=== PATIENT | female | born 1960 | race Caucasian/White ===

== ENCOUNTER 2019-08-12 04:49 | Inpatient (IN) | payer OTHER ==
--- NOTE | 2019-08-12 05:08 | PDOC ---
Attending Attestation - Resident Resident Name: Chad Savage - ED Attending Attestation I have performed the following: I have examined & evaluated the patient, The case was reviewed & discussed with the resident, I agree w/resident's findings & plan - HPI HPI: 08/12/19 06:39 Pt comes with APE; severe HTN and SOB. Pt comes with EMS on a cpap. Pt is a dialysis patient who is due for dialysis on Wednesday. She is originally from [place]; but she is visiting her daughter and she arranged for dialysis to be done at [place]. - Physicial Exam PE: 08/12/19 06:44 Agree with resident exam - Medical Decision Making 08/12/19 06:44 Right side of ACW,, pt has adual chamber pacer; pt has fluffy effusion/ infiltrates in right lung cooley greater than left lung field. 08/12/19 06:57 Pt started on a nitro drip; she was on 10mcg/min. Now upped to 20mcg/min, as BP is still 250/119 08/12/19 20:04 Signed out to the day ER docs
[2019-08-12 05:24] LABS: VENOUS PC02 39.1 mmHg (38-52); VENOUS PO2 < 49 mmHg (28-48)
--- NOTE | 2019-08-12 05:28 | PDOC ---
History of Present Illness - General Chief Complaint: Shortness of Breath Stated Complaint: DIFF BREATHING Time Seen by Provider: 08/12/19 04:57 Past History - Past Medical History Allergies/Adverse Reactions: Allergies Allergy/AdvReac Type Severity Reaction Status Date / Time No Known Allergies Allergy Verified 08/12/19 04:55 COPD: No HTN: Yes - Psycho Social/Smoking Cessation Hx Smoking History: Unknown if ever smoked Have you smoked in the past 12 months: No Information on smoking cessation initiated: No Hx Alcohol Use: No Drug/Substance Use Hx: No *Physical Exam - Vital Signs Last Vital Signs Temp Pulse Resp BP Pulse Ox 97.6 F 83 20 251/117 H 100 08/12/19 04:53 08/12/19 04:53 08/12/19 04:53 08/12/19 04:53 08/12/19 04:55 ED Treatment Course - ADDITIONAL ORDERS Additional order review: Laboratory Results 08/12/19 05:17 VBG pH 7.40 POC VBG pCO2 39.1 POC VBG pO2 < 49 H VBG HCO3 23.7 VBG O2 Sat (Kristal) 72.2 VBG Base Excess -0.5 - RADIOLOGY Radiology Studies Ordered: Category Date Time Status CHEST X-RAY PORTABLE* [RAD] Stat Radiology 08/12/19 05:18 Ordered
[2019-08-12 05:32] LABS: BASO % 0.6 % (0-2.0); EOS % 3.1 % (0-4.5); HEMOGLOBIN 11.4 GM/dL (10.7-15.3); LYMPH % 16.7 % (8-40); MCH 32.5 pg (25.7-33.7); MCHC 34.5 g/dl (32.0-36.0); MEAN CELL VOLUME 94.1 fl (80-96); MEAN PLT VOLUME 8.5 fl (7.5-11.1); MONO % 7.3 % (3.8-10.2); NEUT % 72.3 % (42.8-82.8); PLATELET COUNT 141 K/MM3 (134-434); RBC 3.51 M/mm3 (3.60-5.2); RDW 16.1 % (11.6-15.6); WHITE BLOOD COUNT 6.7 K/mm3 (4.0-10.0)
[2019-08-12] MEDS ORDERED: NITROGLYCERIN 25MG/D5W 250ML 25 MG/250 ML ML IVPB ONE (05:34)
[2019-08-12] MEDS: NITROGLYCERIN 25MG/D5W 250ML 25 MG/250 ML ML IVPB SCH ×2 (05:44→08:20)
[2019-08-12 05:46] LABS: INR 1.07 (0.83-1.09); PROTHROMBIN TIME (PATIENT) 12.6 SEC (9.7-13.0)
[2019-08-12 06:13] LABS: BILIRUBIN,TOTAL 0.4 mg/dL (0.2-1); BLOOD UREA NITROGEN 74.8 mg/dL (7-18); CALCIUM 8.7 mg/dL (8.5-10.1); POTASSIUM 4.7 mmol/L (3.5-5.1); TOT PROT 7.3 g/dl (6.4-8.2)
[2019-08-12 06:25] LABS: CREATININE 7.4 mg/dL (0.55-1.3)
--- NOTE | 2019-08-12 06:29 | PDOC ---
History of Present Illness - General Chief Complaint: Shortness of Breath Stated Complaint: DIFF BREATHING Time Seen by Provider: 08/12/19 04:57 History Source: Patient Exam Limitations: No Limitations - History of Present Illness Initial Comments: 08/12/19 06:22 58 yo female omh HTN, HFpEF, ESRD (HD T//) Pulmonary TB (S/P RIPE 08/01-03/01 ) paroxysmal afib (s/p ablation) PPM, CAD with multiple stents, on 2L NC at home as needed presents to the ED with severe sudden onset difficulty breathing. Pt statesshe woke up around 4 am with severe SOB similar to past CHF exacerbations and called EMS. Pt is from [place] and is in [place] visiting her daughter. Pt has holiday Dialysis scheduled in a [place] dialysis center . P denies being on home diuretics for an unknown reason however, when admitted, she is given lasix. Pt denies recent travel, recent illness, sick contacts, CP, abdominal pain, changes in bowel or bladder habits Past History - Past Medical History Allergies/Adverse Reactions: Allergies Allergy/AdvReac Type Severity Reaction Status Date / Time hydralazine Allergy Mild Uncoded 08/12/19 05:33 Home Medications: Ambulatory Orders Atorvastatin Ca [Lipitor] 20 mg PO HS 08/12/19 Carvedilol [Coreg] 25 mg PO BID 08/12/19 Clopidogrel Bisulfate [Plavix] 75 mg PO DAILY 08/12/19 Diltiazem [Cardizem -] 360 mg PO DAILY 08/12/19 Famotidine 20 mg PO DAILY 08/12/19 Losartan Potassium 100 mg PO DAILY 08/12/19 Minoxidil [Loniten -] 10 mg PO DAILY 08/12/19 Nifedipine [Nifedipine ER] 60 mg PO DAILY 08/12/19 Sevelamer HCl [Renagel] 800 mg PO TID 08/12/19 COPD: No HTN: Yes - Psycho Social/Smoking Cessation Hx Smoking History: Unknown if ever smoked Have you smoked in the past 12 months: No Information on smoking cessation initiated: No Hx Alcohol Use: No Drug/Substance Use Hx: No Review of Systems - Review of Systems Constitutional: Yes: See HPI HEENTM: Yes: See HPI Respiratory: Yes: See HPI Cardiac (ROS): Yes: See HPI ABD/GI: Yes: See HPI : Yes: See HPI Musculoskeletal: Yes: See HPI Integumentary: Yes: See HPI Neurological: Yes: See HPI *Physical Exam - Vital Signs Last Vital Signs Temp Pulse Resp BP Pulse Ox 97.6 F 82 19 210/111 H 100 08/12/19 04:53 08/12/19 05:45 08/12/19 05:45 08/12/19 05:58 08/12/19 05:45 - Physical Exam General Appearance: Yes: Nourished, Appropriately Dressed, Apparent Distress HEENT: positive: EOMI Neck: positive: Supple. negative: Carotid bruit Respiratory/Chest: positive: Accessory Muscle Use, Rapid RR, Rales (diffuse) Cardiovascular: positive: Regular Rhythm, Regular Rate, S1, S2, Edema. negative : Murmur Vascular Pulses: Dorsalis-Pedis (R): 4+, Doralis-Pedis (L): 4+ Gastrointestinal/Abdominal: positive: Flat, Soft. negative: Pulsatile Mass, Protuberent, Distended, Guarding, Rebound, Tenderness Musculoskeletal: negative: CVA Tenderness Extremity: positive: Normal Capillary Refill, Normal Inspection, Normal Range of Motion. negative: Tender Integumentary: positive: Normal Color, Dry, Warm Neurologic: positive: Fully Oriented, Alert, Normal Mood/Affect, Normal Response ED Treatment Course - LABORATORY CBC & Chemistry Diagram: 08/12/19 05:20 08/12/19 05:20 - ADDITIONAL ORDERS Additional order review: Laboratory Results 08/12/19 08/12/19 08/12/19 05:20 05:20 05:17 PT with INR 12.60 INR 1.07 VBG pH 7.40 POC VBG pCO2 39.1 POC VBG pO2 < 49 H VBG HCO3 23.7 VBG O2 Sat (Kristal) 72.2 VBG Base Excess -0.5 Sodium 136 Potassium 4.7 Chloride 101 Carbon Dioxide 26 Anion Gap 9 BUN 74.8 H Est GFR (CKD-EPI)AfAm 6.44 Est GFR (CKD-EPI)NonAf 5.56 Random Glucose 91 Calcium 8.7 Total Bilirubin 0.4 AST 26 ALT 32 Alkaline Phosphatase 112 Creatine Kinase 75 Troponin I 0.04 Total Protein 7.3 Albumin 4.0 08/12/19 05:20 RBC 3.51 L MCV 94.1 MCHC 34.5 RDW 16.1 H MPV 8.5 Neutrophils % 72.3 Lymphocytes % 16.7 Monocytes % 7.3 Eosinophils % 3.1 Basophils % 0.6 - RADIOLOGY Radiology Studies Ordered: Category Date Time Status CHEST X-RAY PORTABLE* [RAD] Stat Radiology 08/12/19 05:18 Ordered Medical Decision Making - Medical Decision Making 08/12/19 06:50 58 yo female omh HTN, HFpEF, ESRD (HD T//) Pulmonary TB (S/P RIPE 08/01-03/01 ) paroxysmal afib (s/p ablation) PPM, CAD with multiple stents, on 2L NC at home as needed presents to the ED with severe sudden onset difficulty breathing. Pt statesshe woke up around 4 am with severe SOB similar to past CHF exacerbations and called EMS. Pt is from [place] and is in [place] visiting her daughter. Pt has holiday Dialysis scheduled in a [place] dialysis center . P denies being on home diuretics for an unknown reason however, when admitted, she is given lasix. Pt denies recent travel, recent illness, sick contacts, CP, abdominal pain, changes in bowel or bladder habits vitals show elevated BP 250s on arrival, SOB with diffuse rales. Bedside sono shows diffuse B lines Placed on BIPAP and Nitro drip BP 210 systolic on 10 mcg nitro drip Labs other than Cr and BUN WNL Consulted ICU team for hypertensive emergency on drip, discussed with Dr. Marr. Will assess after rapid response Micro blogged for admission. Pending admission. S/O to day team for admission Discharge - Discharge Information Problems reviewed: Yes Clinical Impression/Diagnosis: Hypertensive emergency, CHF exacerbation Condition: Stable - Admission No - Follow up/Referral - Patient Discharge Instructions - Post Discharge Activity
--- NOTE | 2019-08-12 08:21 | CONSULT ---
Consultation: REQUESTING PROVIDER: Dr Rene CONSULT REQUEST: ICU management HISTORY OF PRESENT ILLNESS: 58 y/o female with PMH of HTN, ESRD (/) CHF CAD s/p stents , PPM presents to the ED with complaints of worsening shortness of breath over the past few days - patient usually uses 2 liters of home o2 and felt over the past few days she was needing it more frequently and was having worsening shortness of breath when she was laying down; when she got to the ED her systolic bp was in the 250; s and she was started on a nitro gtt; notable labs: Cr 7.4 BNP [id number] patient; CXR showing congestive changes with possible superimposed infiltrates =- patient given 1 dose of IV lasix and placed on BIPAP with relief; patient currently receiving HD REVIEW OF SYSTEMS: CONSTITUTIONAL: Absent: fever, chills, diaphoresis, generalized weakness, malaise, loss of appetite, weight change HEENT: Absent: rhinorrhea, nasal congestion, throat pain, throat swelling, difficulty swallowing, mouth swelling, ear pain, eye pain, visual changes CARDIOVASCULAR: Absent: chest pain, syncope, palpitations, irregular heart rate, lightheadedness , peripheral edema RESPIRATORY: Present: shortness of breath; dyspnea with exertion Absent: cough, orthopnea, wheezing, stridor, hemoptysis GASTROINTESTINAL: Absent: abdominal pain, abdominal distension, nausea, vomiting, diarrhea, constipation, melena, hematochezia GENITOURINARY: Absent: dysuria, frequency, urgency, hesitancy, hematuria, flank pain, genital pain MUSCULOSKELETAL: Absent: myalgia, arthralgia, joint swelling, back pain, neck pain SKIN: Absent: rash, itching, pallor HEMATOLOGIC/IMMUNOLOGIC: Absent: easy bleeding, easy bruising, lymphadenopathy, frequent infections ENDOCRINE: Absent: unexplained weight gain, unexplained weight loss, heat intolerance, cold intolerance NEUROLOGIC: Absent: headache, focal weakness or paresthesias, dizziness, unsteady gait, seizure, mental status changes, bladder or bowel incontinence PSYCHIATRIC: Absent: anxiety, depression, suicidal or homicidal ideation, hallucinations. PHYSICAL EXAMINATION Vital Signs - 24 hr 08/12/19 08/12/19 08/12/19 04:53 04:55 05:45 Temperature 97.6 F Pulse Rate 83 Pulse Rate [ 82 Right Radial] Respiratory 20 19 Rate Blood Pressure 251/117 H Blood Pressure 237/113 H [Right Arm] Blood Pressure [Right Calf] O2 Sat by Pulse 100 100 100 Oximetry (%) 08/12/19 08/12/19 08/12/19 05:58 06:44 07:15 Temperature 97.1 F L Pulse Rate Pulse Rate [ 82 82 Right Radial] Respiratory 19 18 Rate Blood Pressure Blood Pressure 210/111 H 206/96 H 215/112 H [Right Arm] Blood Pressure [Right Calf] O2 Sat by Pulse 100 99 Oximetry (%) 08/12/19 08/12/19 08/12/19 07:20 07:25 07:45 Temperature Pulse Rate Pulse Rate [ 80 84 83 Right Radial] Respiratory 10 15 15 Rate Blood Pressure Blood Pressure 221/108 H [Right Arm] Blood Pressure 205/88 H 207/85 H [Right Calf] O2 Sat by Pulse 99 100 Oximetry (%) GENERAL: Awake, alert, and fully oriented, on BIPAP. EYES: PEERLA: EOMI; no scleral icterus NECK: no JVD; no lymphadenopathy LUNGS:rales appreciated B/L HEART: Regular rate and rhythm, normal S1 and S2 without murmur, rub or gallop. ABDOMEN: Soft, NT/ND +BS in all 4 quadrants MUSCULOSKELETAL: Normal range of motion at all joints. No bony deformities or tenderness. No CVA tenderness. EXTREMITIES:warm; well-perfused no clubbing/cyanosis or edema NEUROLOGICAL: Cranial nerves II-XII intact. Normal speech. Normal gait. PSYCHIATRIC: Cooperative. Good eye contact. Appropriate mood and affect. SKIN: Warm, dry, normal turgor, no rashes or lesions noted. Laboratory Results - last 24 hr 08/12/19 08/12/19 08/12/19 04:40 05:17 05:20 WBC RBC Hgb Hct MCV MCH MCHC RDW Plt Count MPV Absolute Neuts (auto) Neutrophils % Lymphocytes % Monocytes % Eosinophils % Basophils % Nucleated RBC % PT with INR INR VBG pH 7.40 POC VBG pCO2 39.1 POC VBG pO2 < 49 H VBG HCO3 23.7 VBG O2 Sat (Kristal) 72.2 VBG Base Excess -0.5 Sodium 136 Potassium 4.7 Chloride 101 Carbon Dioxide 26 Anion Gap 9 BUN 74.8 H Creatinine 7.4 H* Est GFR (CKD-EPI)AfAm 6.44 Est GFR (CKD-EPI)NonAf 5.56 Random Glucose 91 Calcium 8.7 Total Bilirubin 0.4 AST 26 ALT 32 Alkaline Phosphatase 112 Creatine Kinase 75 Troponin I 0.04 B-Natriuretic Peptide 48408.9 H Total Protein 7.3 Albumin 4.0 08/12/19 08/12/19 05:20 05:20 WBC 6.7 RBC 3.51 L Hgb 11.4 Hct 33.0 MCV 94.1 MCH 32.5 MCHC 34.5 RDW 16.1 H Plt Count 141 MPV 8.5 Absolute Neuts (auto) 4.9 Neutrophils % 72.3 Lymphocytes % 16.7 Monocytes % 7.3 Eosinophils % 3.1 Basophils % 0.6 Nucleated RBC % 0 PT with INR 12.60 INR 1.07 VBG pH POC VBG pCO2 POC VBG pO2 VBG HCO3 VBG O2 Sat (Kristal) VBG Base Excess Sodium Potassium Chloride Carbon Dioxide Anion Gap BUN Creatinine Est GFR (CKD-EPI)AfAm Est GFR (CKD-EPI)NonAf Random Glucose Calcium Total Bilirubin AST ALT Alkaline Phosphatase Creatine Kinase Troponin I B-Natriuretic Peptide Total Protein Albumin Active Medications Generic Name Dose Route Start Last Admin Trade Name Freq PRN Reason Stop Dose Admin Chlorhexidine Gluconate 1 applic 08/12/19 22:00 Hibiclens For Decolonization - TP HS KAUSHIK Heparin Sodium (Porcine) 5,000 unit 08/12/19 14:00 Heparin - SQ TID KAUSHIK Nitroglycerin/Dextrose 25 mg in 250 mls @ 6 mls/hr 08/12/19 05:30 08/12/19 08 :20 Nitroglycerin 25mg/D5w 250ml IVPB 23 mcg/min TITR KAUSHIK 13.8 mls/hr Administration 10 MCG/MIN Mupirocin 1 applic 08/12/19 10:00 Bactroban Ointment (For Decolonization) - NS 08/17/19 09:59 BID [facility] ASSESSMENT/PLAN: 58 y/o female with PMH of HTN, ESRD (t//) CHF CAD s/p stents , PPM presents to the ED with complaints of worsening shortness of breath over the past few days found to be in CHF exacerbation with hypertensive emergency #Neuro stable; no issues -given high BP will monitor for any stroke-like symptoms #Cardio HTN, CHF, CAD -currently with hypertensive emergency on nitro gtt -will switch to cardene gtt and restart home meds -not currently on diuretics; may give lasix if breathing doesn't improve -echo ordered -cardio consulted #GI stable; no issues -renal diet; sodium restriction #Pulm uses 2liters of o2 at home -currently saturating well on NC -repeat CXR in AM -BIPAP if need -monitor o2 saturations #Renal history of ESRD t/th/s -currently receiving HD - f/u post HD labs -sodium restrictions -monitor volume status -avoid nephrotoxic drugs -nephro consulted f/e/n not on fluids monitor electrolytes sodium/renal diet dvt ppx: heparin sq Dispo: We will continue to follow the patient. Thank you for this consultative opportunity. Problem List - Problems (1) CHF exacerbation Code(s): I50.9 - HEART FAILURE, UNSPECIFIED Qualifiers: Heart failure type: unspecified Qualified Code(s): I50.9 - Heart failure, unspecified (2) Hypertensive emergency Code(s): I16.1 - HYPERTENSIVE EMERGENCY Visit type - Emergency Visit Emergency Visit: Yes ED Registration Date: 08/12/19 Care time: The patient presented to the Emergency Department on the above date and was hospitalized for further evaluation of their emergent condition. - New Patient This patient is new to me today: Yes Date on this admission: 08/12/19 - Critical Care Critical Care patient: Yes Total Critical Care Time (in minutes): 35 Critical Care Statement: The care of this patient involved high complexity decision making to prevent further life threatening deterioration of the patient 's condition and/or to evaluate & treat vital organ system(s) failure or risk of failure. ATTENDING PHYSICIAN STATEMENT I saw and evaluated the patient. I reviewed the resident's note and discussed the case with the resident. I agree with the resident's findings and plan as documented. SUBJECTIVE: OBJECTIVE: ASSESSMENT AND PLAN:
--- NOTE | 2019-08-12 08:47 | PDOC ---
*Physical Exam - Vital Signs Last Vital Signs Temp Pulse Resp BP Pulse Ox 97.1 F L 81 18 185/74 H 100 08/12/19 07:15 08/12/19 08:22 08/12/19 08:22 08/12/19 08:22 08/12/19 08:25 ED Treatment Course - LABORATORY CBC & Chemistry Diagram: 08/12/19 05:20 08/12/19 05:20 - ADDITIONAL ORDERS Additional order review: Laboratory Results 08/12/19 08/12/19 08/12/19 05:20 05:20 05:17 PT with INR 12.60 INR 1.07 VBG pH 7.40 POC VBG pCO2 39.1 POC VBG pO2 < 49 H VBG HCO3 23.7 VBG O2 Sat (Kristal) 72.2 VBG Base Excess -0.5 Sodium 136 Potassium 4.7 Chloride 101 Carbon Dioxide 26 Anion Gap 9 BUN 74.8 H Creatinine 7.4 H* Est GFR (CKD-EPI)AfAm 6.44 Est GFR (CKD-EPI)NonAf 5.56 Random Glucose 91 Calcium 8.7 Total Bilirubin 0.4 AST 26 ALT 32 Alkaline Phosphatase 112 Creatine Kinase 75 Troponin I 0.04 B-Natriuretic Peptide Total Protein 7.3 Albumin 4.0 08/12/19 04:40 PT with INR INR VBG pH POC VBG pCO2 POC VBG pO2 VBG HCO3 VBG O2 Sat (Kristal) VBG Base Excess Sodium Potassium Chloride Carbon Dioxide Anion Gap BUN Creatinine Est GFR (CKD-EPI)AfAm Est GFR (CKD-EPI)NonAf Random Glucose Calcium Total Bilirubin AST ALT Alkaline Phosphatase Creatine Kinase Troponin I B-Natriuretic Peptide 30393.9 H Total Protein Albumin 08/12/19 05:20 RBC 3.51 L MCV 94.1 MCHC 34.5 RDW 16.1 H MPV 8.5 Neutrophils % 72.3 Lymphocytes % 16.7 Monocytes % 7.3 Eosinophils % 3.1 Basophils % 0.6 ED Progress Note - Progress Note Progress Note: Hand off provided to Dr. De Oliveira & Dr. Beebe for admission to ICU for management of nitro drip. 08/12/19 08:45 Discharge - Discharge Information Problems reviewed: Yes Clinical Impression/Diagnosis: Hypertensive emergency CHF exacerbation Qualifiers: Heart failure type: unspecified Qualified Code(s): I50.9 - Heart failure, unspecified Condition: Stable - Follow up/Referral - Patient Discharge Instructions - Post Discharge Activity
--- NOTE | 2019-08-12 10:23 | PN ---
Teaching Attending Note Name of Resident: Miladys De Oliveira ATTENDING PHYSICIAN STATEMENT I saw and evaluated the patient. I reviewed the resident's note and discussed the case with the resident. I agree with the resident's findings and plan as documented. SUBJECTIVE: Patient seen and examined in the ER. Awake and alert on NIPPV Support and IV NTG. Daughter at the bedside. Currently BP is much improved. Denies CP and SOB and better. Intake & Output 08/09/19 08/10/19 08/11/19 08/12/19 23:59 23:59 23:59 23:59 Weight 131 lb 8 oz Last Vital Signs Temp Pulse Resp BP Pulse Ox 97.6 F 80 24 H 219/99 H 100 08/12/19 10:04 08/12/19 10:04 08/12/19 10:04 08/12/19 10:03 08/12/19 10:07 Active Medications Chlorhexidine Gluconate (Hibiclens For Decolonization -) 1 applic TP HS KAUSHIK Heparin Sodium (Porcine) (Heparin -) 5,000 unit SQ TID KAUSHIK Nitroglycerin/Dextrose (Nitroglycerin 25mg/D5w 250ml) 25 mg in 250 mls @ 6 mls/ hr IVPB TITR KAUSHIK Last Titration: 08/12/19 10:10 Dose: 40 mcg/min, 24 mls/hr Mupirocin (Bactroban Ointment (For Decolonization) -) 1 applic NS BID KAUSHIK Stop: 08/17/19 09:59 GENERAL: Awake, alert, on NIPPV HEAD: Normal with no signs of trauma. EYES: Pupils equal, round and reactive to light, extraocular movements intact, sclera anicteric, conjunctiva clear. No lid lag. EARS, NOSE, THROAT: Ears normal, nares patent, oropharynx clear without exudates. Moist mucous membranes. NECK: Normal range of motion, supple without lymphadenopathy, JVD, or masses. LUNGS: NIPPV support, Bilateral rales and rhonchi HEART: Regular rate and rhythm, normal S1 and S2 without murmur, rub or gallop. ABDOMEN: Soft, nontender, not distended, normoactive bowel sounds, no guarding, no rebound, no masses. No hepatomegaly or splenomegaly. MUSCULOSKELETAL: Normal range of motion at all joints. No bony deformities or tenderness. No CVA tenderness. UPPER EXTREMITIES: 2+ pulses, warm, well-perfused. No cyanosis. No clubbing. Cap refill <2 seconds. No peripheral edema. LOWER EXTREMITIES: 2+ pulses, warm, well-perfused. No calf tenderness. No peripheral edema. NEUROLOGICAL: Non-focal SKIN: Warm, dry, normal turgor, no rashes or lesions noted. Laboratory Results - last 24 hr 08/12/19 08/12/19 08/12/19 04:40 05:17 05:20 WBC RBC Hgb Hct MCV MCH MCHC RDW Plt Count MPV Absolute Neuts (auto) Neutrophils % Lymphocytes % Monocytes % Eosinophils % Basophils % Nucleated RBC % PT with INR INR VBG pH 7.40 POC VBG pCO2 39.1 POC VBG pO2 < 49 H VBG HCO3 23.7 VBG O2 Sat (Kristal) 72.2 VBG Base Excess -0.5 Sodium 136 Potassium 4.7 Chloride 101 Carbon Dioxide 26 Anion Gap 9 BUN 74.8 H Creatinine 7.4 H* Est GFR (CKD-EPI)AfAm 6.44 Est GFR (CKD-EPI)NonAf 5.56 Random Glucose 91 Calcium 8.7 Total Bilirubin 0.4 AST 26 ALT 32 Alkaline Phosphatase 112 Creatine Kinase 75 Troponin I 0.04 B-Natriuretic Peptide 35656.9 H Total Protein 7.3 Albumin 4.0 08/12/19 08/12/19 05:20 05:20 WBC 6.7 RBC 3.51 L Hgb 11.4 Hct 33.0 MCV 94.1 MCH 32.5 MCHC 34.5 RDW 16.1 H Plt Count 141 MPV 8.5 Absolute Neuts (auto) 4.9 Neutrophils % 72.3 Lymphocytes % 16.7 Monocytes % 7.3 Eosinophils % 3.1 Basophils % 0.6 Nucleated RBC % 0 PT with INR 12.60 INR 1.07 VBG pH POC VBG pCO2 POC VBG pO2 VBG HCO3 VBG O2 Sat (Kristal) VBG Base Excess Sodium Potassium Chloride Carbon Dioxide Anion Gap BUN Creatinine Est GFR (CKD-EPI)AfAm Est GFR (CKD-EPI)NonAf Random Glucose Calcium Total Bilirubin AST ALT Alkaline Phosphatase Creatine Kinase Troponin I B-Natriuretic Peptide Total Protein Albumin Active Medications Generic Name Dose Route Start Last Admin Trade Name Freq PRN Reason Stop Dose Admin Chlorhexidine Gluconate 1 applic 08/12/19 22:00 Hibiclens For Decolonization - TP HS KAUSHIK Heparin Sodium (Porcine) 5,000 unit 08/12/19 14:00 Heparin - SQ TID KAUSHIK Nitroglycerin/Dextrose 25 mg in 250 mls @ 6 mls/hr 08/12/19 05:30 08/12/19 08 :20 Nitroglycerin 25mg/D5w 250ml IVPB 23 mcg/min TITR KAUSHIK 13.8 mls/hr Administration 10 MCG/MIN Mupirocin 1 applic 08/12/19 10:00 Bactroban Ointment (For Decolonization) - NS 08/17/19 09:59 BID KAUSHIK ASSESSMENT/PLAN: Acute Respiratory Failure due to CHF due to Hypertensive Emergency HTN CHF HFpEF ESRD on HD (//) History of Pulmonary TB (S/P RIPE 08/01-03/01) Paroxysmal AFib (s/p ablation) PPM CAD with multiple stents Use of home O2 @ 2L NC IV NTG Lasix NIPPV support ECHO AC Aspiration precautions Daily weights Strict I & O Requires ICU monitoring for tenuous overall status Dr Santizo Critical care time spent in reviewing chart, evaluating patient and formulating plan - 36 minutes.
[2019-08-12] MEDS ORDERED: SODIUM CHLORIDE 250 ML IV PRN (10:52)
--- NOTE | 2019-08-12 11:21 | CONSULT ---
Consult - text type - Consultation Consultation Note: Renal consult for ESRD with hypertensive urgency/fluid overload Coverage for Dr. Caputo This is a 58 year old woman with history of ESRD on HD (TTS), hypertension, CHF , Afib, PPM who presented from home with shortness of breath and found to have acute HF with hypertensive emergency. Seen and examined in the ICU. Awake and alert. On Nitro gtt. Denies any chest pain, fever, chills. SOB has been over 2 weeks. Last dialysis was . Reports compliance with antihypertensive medications. PMhx: as above Allergies: Hydralazine Family Hx: NC social Hx: No T/A/D ROS: as per HPI, all other pertinent ros negative Home Medications Medication Instructions Recorded Atorvastatin Ca [Lipitor] 20 mg PO HS 08/12/19 Carvedilol [Coreg] 25 mg PO BID 08/12/19 Clopidogrel Bisulfate [Plavix] 75 mg PO DAILY 08/12/19 Diltiazem [Cardizem -] 360 mg PO DAILY 08/12/19 Famotidine 20 mg PO DAILY 08/12/19 Isosorbide Mononitrate [Isosorbide 120 mg PO DAILY 08/12/19 Mononitrate ER] Losartan Potassium 100 mg PO DAILY 08/12/19 Minoxidil [Loniten -] 10 mg PO HS 08/12/19 Nifedipine [Nifedipine ER] 60 mg PO DAILY 08/12/19 Nitroglycerin 0.4 mg SL ASDIR 08/12/19 Sevelamer HCl [Renagel] 800 mg PO TID 08/12/19 Vital Signs Temperature 97.6 F 08/12/19 10:04 Pulse Rate 80 08/12/19 10:04 Respiratory Rate 24 H 08/12/19 10:04 Blood Pressure 219/99 H 08/12/19 10:03 O2 Sat by Pulse Oximetry (%) 100 08/12/19 10:07 Intake & Output 08/09/19 08/10/19 08/11/19 08/12/19 23:59 23:59 23:59 23:59 Weight 59.647 kg NAD awake and alert neck supple irregular, + murmur Dec BS, no rales or wheeze soft NT/ND no LE edema Left arm AVF CBC, BMP 08/12/19 05:20 08/12/19 05:20 Current Medications Chlorhexidine Gluconate (Hibiclens For Decolonization -) 1 applic TP HS KAUSHIK Heparin Sodium (Porcine) (Heparin -) 5,000 unit SQ TID KAUSHIK Nitroglycerin/Dextrose (Nitroglycerin 25mg/D5w 250ml) 25 mg in 250 mls @ 6 mls/ hr IVPB TITR KAUSHIK Last Titration: 08/12/19 10:10 Dose: 40 mcg/min, 24 mls/hr Sodium Chloride (Normal Saline -) 250 mls @ 3,000 mls/hr IV PRN PRN PRN Reason: Hypotension during Dialysis Stop: 08/13/19 10:52 Mupirocin (Bactroban Ointment (For Decolonization) -) 1 applic NS BID KAUSHIK Stop: 08/17/19 09:59 58 year old woman with history of ESRD on HD (TTS), hypertension, CHF, Afib on A /C, PPM who presented from home with shortness of breath and found to have acute HF with hypertensive emergency. 1. Hypertensive emergency 2. Acute HF 3. ESRD on HD 4. Afib Will arrange for emergent Hd with aggressive UF continue nitro gtt as per ICU resume oral antihypertensives after dialysis Sodium restriction will consider additional UF on Wednesday if needed Thank you Alec Law DO
--- NOTE | 2019-08-12 13:23 | EKG ---
Test Reason : Blood Pressure : / mmHG Vent. Rate : 081 BPM Atrial Rate : 081 BPM P-R Int : 170 ms QRS Dur : 084 ms QT Int : 412 ms P-R-T Axes : 051 005 107 degrees QTc Int : 478 ms NORMAL SINUS RHYTHM PROLONGED QT ABNORMAL ECG WHEN COMPARED WITH ECG OF 17-FEB-2005 16:44, NON-SPECIFIC CHANGE IN ST SEGMENT IN INFERIOR LEADS NON-SPECIFIC CHANGE IN ST SEGMENT IN LATERAL LEADS T WAVE INVERSION NOW EVIDENT IN LATERAL LEADS Confirmed by WILMER BLACKWOOD MD ([id number]) on 08/12/2019 1:23:22 PM Referred By: Confirmed By:WILMER BLACKWOOD MD
--- NOTE | 2019-08-12 15:23 | CON.CARD ---
Consult Consult Specialty:: Cardiology Referred by:: Hospitalist Medicine Reason for Consultation:: Hypertensive urgency, diastolic CHF - History of Present Illness Chief Complaint: Dyspnea, elevated BP History of Present Illness: This is a 58 year old woman with history of ESRD on HD via LUE AVF (TTS), hypertension, pHTN, HFpEF, Pulmonary TB (S/P [place] 08/01-03/01), paroxysmal afib (s /p ablation) PPM, CAD with multiple stents, on 2L NC at home as needed presented from home with shortness of breath, headache, chest tightness and found to have acute on chronic diastolic HF with hypertensive emergency. Started Nitro gtt and underwent 4 L ultrafiltration with relief of symptoms. Denies any fever, chills. SOB has been over 2 weeks. Last dialysis was . Reports compliance with antihypertensive medications and diet. - History Source History Provided By: Patient Limitations to Obtaining History: No Limitations - Past Medical History Cardio/Vascular: Yes: AFIB, CHF, HTN Renal/: Yes: Hemodialysis ...: No - Alcohol/Substance Use Hx Alcohol Use: No - Smoking History Smoking history: Former smoker Have you smoked in the past 12 months: No If you are a former smoker, when did you quit?: YEARS AGO Home Medications - Allergies Allergies/Adverse Reactions: Allergies Allergy/AdvReac Type Severity Reaction Status Date / Time hydralazine Allergy Severe Verified 08/12/19 11:28 hydralazine Allergy Severe Itching Uncoded 08/12/19 10:19 - Home Medications Home Medications: Ambulatory Orders Atorvastatin Ca [Lipitor] 20 mg PO HS 08/12/19 Carvedilol [Coreg] 25 mg PO BID 08/12/19 Clopidogrel Bisulfate [Plavix] 75 mg PO DAILY 08/12/19 Diltiazem [Cardizem -] 360 mg PO DAILY 08/12/19 Famotidine 20 mg PO DAILY 08/12/19 Isosorbide Mononitrate [Isosorbide Mononitrate ER] 120 mg PO DAILY 08/12/19 Losartan Potassium 100 mg PO DAILY 08/12/19 Minoxidil [Loniten -] 10 mg PO HS 08/12/19 Nifedipine [Nifedipine ER] 60 mg PO DAILY 08/12/19 Nitroglycerin 0.4 mg SL ASDIR 08/12/19 Sevelamer HCl [Renagel] 800 mg PO TID 08/12/19 Review of Systems - Review of Systems Cardiovascular: reports: Chest Pain, Shortness of Breath Neurological: reports: Headache Vital Signs: Vital Signs Temperature 97.6 F 08/12/19 10:04 Pulse Rate 94 H 08/12/19 15:00 Respiratory Rate 16 08/12/19 15:00 Blood Pressure 212/113 H 08/12/19 15:00 O2 Sat by Pulse Oximetry (%) 100 08/12/19 13:00 Constitutional: Yes: No Distress, Calm, Thin Neck: Yes: Supple Respiratory: Yes: Regular, Diminished, On Nasal O2 Gastrointestinal: Yes: Normal Bowel Sounds, Soft Cardiovascular: Yes: Regular Rate and Rhythm JVD: No Carotid Bruit: No Heart Sounds: Yes: S1, S2 Murmur: Yes: Systolic Murmur, Grade 1 Edema: No - Other Data Labs, Other Data: CBC, BMP 08/12/19 05:20 08/12/19 05:20 INR, PTT INR 1.07 (0.83-1.09) 08/12/19 05:20 Troponin, BNP 08/12/19 08/12/19 08/12/19 04:40 05:20 11:10 Troponin I 0.04 0.04 B-Natriuretic Peptide 26009.9 H Troponin, BNP 08/12/19 08/12/19 08/12/19 04:40 05:20 11:10 Troponin I 0.04 0.04 B-Natriuretic Peptide 29806.9 H NSR @ [address]-T changes Ejection Fraction %: LVEF > or = 40 % Imaging - Results Chest X-ray: Report Reviewed (Congestion, pacemaker) Problem List - Problems (1) Hyperlipidemia Code(s): E78.5 - HYPERLIPIDEMIA, UNSPECIFIED Qualifiers: Hyperlipidemia type: pure hypercholesterolemia Qualified Code(s): E78.00 - Pure hypercholesterolemia, unspecified; E78.0 - Pure hypercholesterolemia (2) Coronary artery disease Code(s): I25.10 - ATHSCL HEART DISEASE OF [place] CORONARY ARTERY W/O ANG PCTRS Qualifiers: Coronary Disease-Associated Artery/Lesion type: [place] artery [place] vs. transplanted heart: [place] heart Associated angina: with stable angina Qualified Code(s): I25.118 - Atherosclerotic heart disease of [place] coronary artery with other forms of angina pectoris (3) Stented coronary artery Code(s): Z95.5 - PRESENCE OF CORONARY ANGIOPLASTY IMPLANT AND GRAFT (4) End stage renal disease on dialysis Code(s): N18.6 - END STAGE RENAL DISEASE; Z99.2 - DEPENDENCE ON RENAL DIALYSIS (5) CHF exacerbation Code(s): I50.9 - HEART FAILURE, UNSPECIFIED Qualifiers: Heart failure type: diastolic Qualified Code(s): I50.33 - Acute on chronic diastolic (congestive) heart failure (6) Hypertensive emergency Code(s): I16.1 - HYPERTENSIVE EMERGENCY Assessment/Plan 1. Acute on chronic diastolic heart failure 2. HTN emergency 3. ESRD on HD via LUE AVF (//) 4. CAD s/p stents 5. PAF->SR 6. s/p PPM 7. Hyperlipidemia P:1. Volume removal via UF per renal 2. Wean NTG gtt, resume home regimen including Lipitor 20 qd, carvedilol 25 bid , Plavix 75 qd, Cardizem CD 360 qd, Imdur 120 qd, losartan 100 qd, minoxidil 10 qd, Procardia XL 60 qd step-pacheco fashion 3. F/u echo results 4. FIO2 as needed 5. Thank you for consultative opportunity
[2019-08-12] MEDS: LOSARTAN POTASSIUM 50 MG TABLET (FP) PO SCH (16:04)
[2019-08-12] MEDS: NIFEdipine E.R 60 MG TABLET PO SCH (16:06)
[2019-08-12] MEDS: HEPARIN NA (PORCINE) 5,000 UNITS/ML 1ML VIAL SQ SCH ×3 (16:07→21:41)
[2019-08-12] MEDS ORDERED: PT OWN MED DRAWER 7, Y5N ONE ×2 (16:14→19:21)
[2019-08-12] MEDS: ACETAMINOPHEN 325 MG TABLET (FP) PO PRN ×2 (16:14→22:50)
[2019-08-12 16:32] LABS: BLOOD UREA NITROGEN 9.7 mg/dL (7-18); CREATININE 1.7 mg/dL (0.55-1.3)
[2019-08-12] MEDS ORDERED: CARVEDILOL 25 MG TABLET (FP) PO ONE (17:27)
[2019-08-12] MEDS ORDERED: CLOPIDOGREL BISULFATE 75 MG TABLET (FP) PO ONE (17:34)
[2019-08-12] MEDS: ISOSORBIDE MONONITRATE 60 MG TAB.SR.24H (FP) PO SCH (18:20)
--- NOTE | 2019-08-12 18:21 | PN ---
Teaching Attending Note Name of Resident: Orin Beebe ATTENDING PHYSICIAN STATEMENT I saw and evaluated the patient. I reviewed the resident's note and discussed the case with the resident. I agree with the resident's findings and plan as documented. SUBJECTIVE: Feeling better, less SOB. No headache/visual disturbance/limb numbness/weakness. OBJECTIVE: Afebrile, Hemodynamically Stable. Last Vital Signs Temp Pulse Resp BP Pulse Ox 97.6 F 92 H 18 156/90 97 08/12/19 10:04 08/12/19 17:30 08/12/19 17:30 08/12/19 17:30 08/12/19 16:21 HEENT - Atraumatic, Normocephalic. Heart - S1, S2, RRR Lungs - basal crackles Abdomen - Soft, non-tender. Bowel sounds normal. Extremities - no edema, no calf tenderness. Laboratory Results - last 24 hr 08/12/19 08/12/19 08/12/19 04:40 05:17 05:20 WBC RBC Hgb Hct MCV MCH MCHC RDW Plt Count MPV Absolute Neuts (auto) Neutrophils % Lymphocytes % Monocytes % Eosinophils % Basophils % Nucleated RBC % PT with INR INR VBG pH 7.40 POC VBG pCO2 39.1 POC VBG pO2 < 49 H VBG HCO3 23.7 VBG O2 Sat (Kristal) 72.2 VBG Base Excess -0.5 Sodium 136 Potassium 4.7 Chloride 101 Carbon Dioxide 26 Anion Gap 9 BUN 74.8 H Creatinine 7.4 H* Est GFR (CKD-EPI)AfAm 6.44 Est GFR (CKD-EPI)NonAf 5.56 Random Glucose 91 Calcium 8.7 Total Bilirubin 0.4 AST 26 ALT 32 Alkaline Phosphatase 112 Creatine Kinase 75 Troponin I 0.04 B-Natriuretic Peptide 85356.9 H Total Protein 7.3 Albumin 4.0 08/12/19 08/12/19 08/12/19 05:20 05:20 11:10 WBC 6.7 RBC 3.51 L Hgb 11.4 Hct 33.0 MCV 94.1 MCH 32.5 MCHC 34.5 RDW 16.1 H Plt Count 141 MPV 8.5 Absolute Neuts (auto) 4.9 Neutrophils % 72.3 Lymphocytes % 16.7 Monocytes % 7.3 Eosinophils % 3.1 Basophils % 0.6 Nucleated RBC % 0 PT with INR 12.60 INR 1.07 VBG pH POC VBG pCO2 POC VBG pO2 VBG HCO3 VBG O2 Sat (Kristal) VBG Base Excess Sodium Potassium Chloride Carbon Dioxide Anion Gap BUN Creatinine Est GFR (CKD-EPI)AfAm Est GFR (CKD-EPI)NonAf Random Glucose Calcium Total Bilirubin AST ALT Alkaline Phosphatase Creatine Kinase Troponin I 0.04 B-Natriuretic Peptide Total Protein Albumin 08/12/19 15:15 WBC RBC Hgb Hct MCV MCH MCHC RDW Plt Count MPV Absolute Neuts (auto) Neutrophils % Lymphocytes % Monocytes % Eosinophils % Basophils % Nucleated RBC % PT with INR INR VBG pH POC VBG pCO2 POC VBG pO2 VBG HCO3 VBG O2 Sat (Kristal) VBG Base Excess Sodium Potassium Chloride Carbon Dioxide Anion Gap BUN 9.7 Creatinine 1.7 H Est GFR (CKD-EPI)AfAm 38.13 Est GFR (CKD-EPI)NonAf 32.90 Random Glucose Calcium Total Bilirubin AST ALT Alkaline Phosphatase Creatine Kinase Troponin I B-Natriuretic Peptide Total Protein Albumin Current Medications Generic Name Dose Route Start Last Admin Trade Name Freq PRN Reason Stop Dose Admin Acetaminophen 650 mg 08/12/19 16:00 08/12/19 16:14 Tylenol - PO 650 mg Q6H PRN Administration Fever / Pain 6-10 for headache Atorvastatin Calcium 20 mg 08/12/19 22:00 Lipitor - PO HS [facility] Carvedilol 25 mg 08/12/19 22:00 Coreg - PO BID [facility] Chlorhexidine Gluconate 1 applic 08/12/19 22:00 Hibiclens For Decolonization - TP HS [facility] Clopidogrel Bisulfate 75 mg 08/13/19 10:00 Plavix - PO DAILY [facility] Diltiazem HCl 360 mg 08/12/19 15:45 08/12/19 16:03 Cardizem Cd - PO 360 mg DAILY KAUSHIK Administration Heparin Sodium (Porcine) 5,000 unit 08/12/19 14:00 08/12/19 16:07 Heparin - SQ 5,000 unit TID KAUSHIK Administration Nitroglycerin/Dextrose 25 mg in 250 mls @ 6 mls/hr 08/12/19 05:30 08/12/19 17 :35 Nitroglycerin 25mg/D5w 250ml IVPB 15 mcg/min TITR KAUSHIK 9 mls/hr Titration 10 MCG/MIN Sodium Chloride 250 mls @ 3,000 mls/hr 08/12/19 10:52 Normal Saline - IV 08/13/19 10:52 PRN PRN Hypotension during Dialysis Isosorbide Mononitrate 120 mg 08/12/19 15:45 Imdur - PO DAILY [facility] Losartan Potassium 100 mg 08/12/19 15:45 08/12/19 16:04 Cozaar - PO 100 mg DAILY [facility] Administration Minoxidil 10 mg 08/12/19 22:00 Loniten - PO HS [facility] Mupirocin 1 applic 08/12/19 22:00 Bactroban Ointment (For Decolonization) - NS 08/17/19 21:59 BID [facility] Nifedipine 60 mg 08/12/19 15:45 08/12/19 16:06 Procardia Xl - PO 60 mg DAILY [facility] Administration Home Medications Medication Instructions Recorded Atorvastatin Ca [Lipitor] 20 mg PO HS 08/12/19 Carvedilol [Coreg] 25 mg PO BID 08/12/19 Clopidogrel Bisulfate [Plavix] 75 mg PO DAILY 08/12/19 Diltiazem [Cardizem -] 360 mg PO DAILY 08/12/19 Famotidine 20 mg PO DAILY 08/12/19 Isosorbide Mononitrate [Isosorbide 120 mg PO DAILY 08/12/19 Mononitrate ER] Losartan Potassium 100 mg PO DAILY 08/12/19 Minoxidil [Loniten -] 10 mg PO HS 08/12/19 Nifedipine [Nifedipine ER] 60 mg PO DAILY 08/12/19 Nitroglycerin 0.4 mg SL ASDIR 08/12/19 Sevelamer HCl [Renagel] 800 mg PO TID 08/12/19 ASSESSMENT AND PLAN: 58 year old female with history of HTN, ESRD (T/T/S), Paroxysmal AFib (s/p ablation), Chronic respiratory Failure secondary to Chronic Diastolic CHF (on 2L O2), CAD s/p stents, s/p PPM, History of Pulmonary TB (S/P [place] 08/01-03/01), presents to the ED with complaints of worsening shortness of breath and found to have uncontrolled HTN. 1. Acute on Chronic Respiratory Failure secondary to Acute on Chronic Diastolic CHF/Fluid Overload secondary to ESRD CXR - congestive changes BiPAP PRN ESRD (T/T/S) s/p Lasix in ED Nephrology consult for HD Echo requested. 2. Hypertensive Urgency Placed on Nitro drip - down-titration of drip after reintroduction of home anti- hypertensive meds and HD today. Resume Carvedilol, Cardizem CD, Imdur, Losartan, Minoxidil, Procardia. 3. CAD s/p PCI/Stents - Continue Plavix, Carvedilol, Imdur, Losartan, Statin. 4. PAF, currently in SR. continue Cardizem. Not on AC. 5. HLD - Continue Lipitor. DVT Px - Heparin SQ
--- NOTE | 2019-08-12 18:35 | HP ---
CHIEF COMPLAINT: shortness of breath PCP: Dr. Bassett Bonnie [facility] HISTORY OF PRESENT ILLNESS: 58F w/ pmhx of HTN, HFpEF, ESRD (TThS), hx of pulm TB (S/P [place] 08/01-03/01), pAFib (s/p ablation) , CAD (s/p stents), PPM, CHF (on 2L O2) presents to the ED with shortness of breath. States she has been having progressive worsening shortness of breath when laying down to the point where it woke her up from sleep overnight. Pt says she follows her dialysis schedule as recommended and is also compliant with all of her medications. Last , she reports having 1L of fluid taken off during dialysis, but noticed that when she weighed herself after HD, she was 57 kg (dry weight per patient is 54 kg). Upon arrival in the ED, BP was found to be elevated with systolic in the 250s. Denies chest pain, goode/d, n/v, abd pain, urinary/bowel symptoms. ER course was notable for: (1) BP 251/117, HR ~90s, Cr 1.7, BNP ~28k (2) Placed on BiPAP, CXR showed congestive changes and possible superimposed bibasilar infiltrates (3) Nitro gtt started in ED Recent Travel: Denies PAST MEDICAL HISTORY: As per HPI PAST SURGICAL HISTORY: s/p cardiac ablation PPM multiple cardiac stents Social History: Smoking: Denies Alcohol: Denies Drugs: Denies Allergies hydralazine Allergy (Severe, Verified 08/12/19 11:28) bradycardia qmd itching hydralazine Allergy (Severe, Uncoded 08/12/19 10:19) Itching ALSO BECAME VERY BRADYCARDIC HOME MEDICATIONS: Home Medications Medication Instructions Recorded Atorvastatin Ca [Lipitor] 20 mg PO HS 08/12/19 Carvedilol [Coreg] 25 mg PO BID 08/12/19 Clopidogrel Bisulfate [Plavix] 75 mg PO DAILY 08/12/19 Diltiazem [Cardizem -] 360 mg PO DAILY 08/12/19 Famotidine 20 mg PO DAILY 08/12/19 Isosorbide Mononitrate [Isosorbide 120 mg PO DAILY 08/12/19 Mononitrate ER] Losartan Potassium 100 mg PO DAILY 08/12/19 Minoxidil [Loniten -] 10 mg PO HS 08/12/19 Nifedipine [Nifedipine ER] 60 mg PO DAILY 08/12/19 Nitroglycerin 0.4 mg SL ASDIR 08/12/19 Sevelamer HCl [Renagel] 800 mg PO TID 08/12/19 REVIEW OF SYSTEMS CONSTITUTIONAL: Absent: fever, chills, diaphoresis, generalized weakness, malaise, loss of appetite, weight change HEENT: Absent: rhinorrhea, nasal congestion, throat pain, throat swelling, difficulty swallowing, mouth swelling, ear pain, eye pain, visual changes CARDIOVASCULAR: Absent: chest pain, syncope, palpitations, irregular heart rate, lightheadedness , peripheral edema RESPIRATORY: shortness of breath Absent: cough, dyspnea with exertion, orthopnea, wheezing, stridor, hemoptysis GASTROINTESTINAL: Absent: abdominal pain, abdominal distension, nausea, vomiting, diarrhea, constipation, melena, hematochezia GENITOURINARY: Absent: dysuria, frequency, urgency, hesitancy, hematuria, flank pain, genital pain MUSCULOSKELETAL: Absent: myalgia, arthralgia, joint swelling, back pain, neck pain SKIN: Absent: rash, itching, pallor HEMATOLOGIC/IMMUNOLOGIC: Absent: easy bleeding, easy bruising, lymphadenopathy, frequent infections ENDOCRINE: Absent: unexplained weight gain, unexplained weight loss, heat intolerance, cold intolerance PHYSICAL EXAMINATION Vital Signs Temperature 98.4 F 08/12/19 18:00 Pulse Rate 93 H 08/12/19 18:00 Respiratory Rate 16 08/12/19 18:00 Blood Pressure 170/83 08/12/19 18:00 O2 Sat by Pulse Oximetry (%) 97 08/12/19 16:21 BP 08/12/19 08/12/19 08/12/19 11:10 12:00 13:30 Blood Pressure 214/108 H 212/89 H 186/96 H 08/12/19 08/12/19 08/12/19 14:30 15:00 15:15 Blood Pressure 201/99 H 212/113 H 210/113 H 08/12/19 08/12/19 08/12/19 16:00 17:30 18:00 Blood Pressure 198/96 H 156/90 170/83 GENERAL: AAOx3. Resting comfortably in bed on bi-level. No acute distress. HEENT: AT/NC. EOMI. MMM. NECK: Normal range of motion, supple without lymphadenopathy, JVD, or masses. LUNGS: Bibasilar crackles noted. No wheezes noted. Symmetric chest rise. HEART: RRR. Normal S1, S2. No murmurs noted. ABDOMEN: Soft, NT/ND. Normoactive bowel sounds in all 4Qs. No rebound tenderness or guarding. MUSCULOSKELETAL: Normal range of motion at all joints. No bony deformities or tenderness. No CVA tenderness. EXTREMITIES: No peripheral edema noted. Moves all extremities. NEUROLOGICAL: Cranial nerves II-XII intact. Normal speech. PSYCHIATRIC: Cooperative. Good eye contact. Appropriate mood and affect. SKIN: Warm, dry, normal turgor, no rashes or lesions noted, normal capillary refill. CBCD WBC 6.7 K/mm3 (4.0-10.0) 08/12/19 05:20 RBC 3.51 M/mm3 (3.60-5.2) L 08/12/19 05:20 Hgb 11.4 GM/dL (10.7-15.3) 08/12/19 05:20 Hct 33.0 % (32.4-45.2) 08/12/19 05:20 MCV 94.1 fl (80-96) 08/12/19 05:20 MCHC 34.5 g/dl (32.0-36.0) 08/12/19 05:20 RDW 16.1 % (11.6-15.6) H 08/12/19 05:20 Plt Count 141 K/MM3 (134-434) 08/12/19 05:20 MPV 8.5 fl (7.5-11.1) 08/12/19 05:20 CMP Sodium 136 mmol/L (136-145) 08/12/19 05:20 Potassium 4.7 mmol/L (3.5-5.1) 08/12/19 05:20 Chloride 101 mmol/L (98-107) 08/12/19 05:20 Carbon Dioxide 26 mmol/L (21-32) 08/12/19 05:20 Anion Gap 9 MMOL/L (8-16) 08/12/19 05:20 BUN 9.7 mg/dL (7-18) 08/12/19 15:15 Creatinine 1.7 mg/dL (0.55-1.3) H 08/12/19 15:15 Calcium 8.7 mg/dL (8.5-10.1) 08/12/19 05:20 Total Bilirubin 0.4 mg/dL (0.2-1) 08/12/19 05:20 AST 26 U/L (15-37) 08/12/19 05:20 ALT 32 U/L (13-61) 08/12/19 05:20 Alkaline Phosphatase 112 U/L (45-117) 08/12/19 05:20 Total Protein 7.3 g/dl (6.4-8.2) 08/12/19 05:20 Albumin 4.0 g/dl (3.4-5.0) 08/12/19 05:20 ASSESSMENT/PLAN: 58F w/ pmhx of HTN, HFpEF, ESRD (TThS), hx of pulm TB (S/P [place] 08/01-03/01), pAFib (s/p ablation) , CAD (s/p stents), PPM, CHF (on 2L O2) presents to the ED with shortness of breath found to have uncontrolled hypertension. #Acute on Chronic Respiratory Failure; 2/2 fluid overload in setting of ESRD -Clinically stable with no acute respiratory issues -CXR showed congestive changes -Renal consulted; will cont HD schedule (TThS) -Echo ordered #Hypertensive Urgency; Stable. -Previously on nitro gtt, now off. Home meds re-instated. Cont home meds: Cardizem 360, Losartan 100, Procardia 60, Coreg 25 BID #ESRD; Cont HD schedule TThS. Per renal, consider UF on Wednesday if needed. #Afib; Rate-controlled. Cont home med: Cardizem 360, Coreg 25 BID, Plavix 75 #CAD; Stable. Cont home med: Coreg 25 BID, Atorvastatin 20, Plavix 75, Losartan 100, Imdur 120 #HLD; Cont home med: Atorvastatin 20 #Prophylaxis DVT: SQH #FEN -No IVf -recheck lytes in AM -Renal Diet Dispo -admit to ICU; once off nitro drip and HD stable, can transfer to tele Visit type - Emergency Visit Emergency Visit: Yes ED Registration Date: 08/12/19 Care time: The patient presented to the Emergency Department on the above date and was hospitalized for further evaluation of their emergent condition. - New Patient This patient is new to me today: Yes Date on this admission: 08/12/19 - Critical Care Critical Care patient: Yes Total Critical Care Time (in minutes): 36 Critical Care Statement: The care of this patient involved high complexity decision making to prevent further life threatening deterioration of the patient 's condition and/or to evaluate & treat vital organ system(s) failure or risk of failure. ATTENDING PHYSICIAN STATEMENT I saw and evaluated the patient. I reviewed the resident's note and discussed the case with the resident. I agree with the resident's findings and plan as documented. SUBJECTIVE: OBJECTIVE: ASSESSMENT AND PLAN:
[2019-08-12] MEDS: MUPIROCIN 2% TOPICAL OINTMENT FOR DECOLONIZATION NS SCH (21:35)
[2019-08-12] MEDS: ATORVASTATIN CA 20 MG TABLET (FP) PO SCH (21:35)
[2019-08-12] MEDS: CHLORHEXIDINE GLUCONATE 4% CLEANSER FOR DECOLONIZATION TP SCH (21:36)
[2019-08-12] MEDS ORDERED: ATORVASTATIN CA 20 MG TABLET (FP) PO SCH (22:00)
[2019-08-12] MEDS ORDERED: CARVEDILOL 6.25 MG TABLET (FP) PO SCH (22:00)
[2019-08-12] MEDS ORDERED: MINOXIDIL 10 MG TABLET PO SCH (22:00)
[2019-08-12] MEDS ORDERED: CARVEDILOL 25 MG TABLET (FP) PO SCH (22:00)
[2019-08-13] MEDS: NITROGLYCERIN 25MG/D5W 250ML 25 MG/250 ML ML IVPB SCH (06:22)
[2019-08-13] MEDS: HEPARIN NA (PORCINE) 5,000 UNITS/ML 1ML VIAL SQ SCH ×3 (06:22→22:19)
[2019-08-13 06:54] LABS: BASO % 0.6 % (0-2.0); HEMATOCRIT 30.2 % (32.4-45.2); HEMOGLOBIN 10.4 GM/dL (10.7-15.3); LYMPH % 19.3 % (8-40); MCH 32.1 pg (25.7-33.7); MCHC 34.5 g/dl (32.0-36.0); MEAN PLT VOLUME 8.6 fl (7.5-11.1); NEUT % 66.1 % (42.8-82.8); PLATELET COUNT 133 K/MM3 (134-434); RBC 3.25 M/mm3 (3.60-5.2); RDW 15.9 % (11.6-15.6); WHITE BLOOD COUNT 5.2 K/mm3 (4.0-10.0)
[2019-08-13 07:54] LABS: ALBUMIN 3.4 g/dl (3.4-5.0); BILIRUBIN,TOTAL 0.8 mg/dL (0.2-1); BLOOD UREA NITROGEN 40.9 mg/dL (7-18); CREATININE 5.3 mg/dL (0.55-1.3); MAGNESIUM 1.7 mg/dL (1.8-2.4); PHOSPHOROUS 5.9 mg/dL (2.5-4.9); POTASSIUM 4.4 mmol/L (3.5-5.1); TOT PROT 6.7 g/dl (6.4-8.2)
[2019-08-13] MEDS ORDERED: MAGNESIUM SULF 50% (8.12 MEQ/2 ML-1 GM VIAL) IVPB ONE (08:16)
[2019-08-13] MEDS ORDERED: PT OWN MED DRAWER 7, Y5N ONE ×2 (08:34→21:24)
[2019-08-13] MEDS: CLOPIDOGREL BISULFATE 75 MG TABLET (FP) PO SCH (09:19)
[2019-08-13] MEDS: ISOSORBIDE MONONITRATE 60 MG TAB.SR.24H (FP) PO SCH (09:20)
[2019-08-13] MEDS: LOSARTAN POTASSIUM 50 MG TABLET (FP) PO SCH (09:20)
[2019-08-13] MEDS: CARVEDILOL 25 MG TABLET (FP) PO SCH ×2 (09:21→22:30)
[2019-08-13] MEDS: MUPIROCIN 2% TOPICAL OINTMENT FOR DECOLONIZATION NS SCH ×2 (09:36→22:18)
[2019-08-13] MEDS ORDERED: CLOPIDOGREL BISULFATE 75 MG TABLET (FP) PO SCH (10:00)
--- NOTE | 2019-08-13 10:30 | PN ---
Teaching Attending Note Name of Resident: Elis Koenig ATTENDING PHYSICIAN STATEMENT I saw and evaluated the patient. I reviewed the resident's note and discussed the case with the resident. I agree with the resident's findings and plan as documented. SUBJECTIVE: Patient seen and examined in the ICU. Awake and alert. Off IV NTG. Off NIPPV support. Denies CP and SOB is better. Intake & Output 08/10/19 08/11/19 08/12/19 08/13/19 23:59 23:59 23:59 23:59 Intake Total 564 Output Total 30 Balance 534 Weight 131 lb 8 oz 126 lb 8.725 oz Last Vital Signs Temp Pulse Resp BP Pulse Ox 98.2 F 64 18 130/63 97 08/13/19 06:00 08/13/19 09:26 08/13/19 09:26 08/13/19 09:20 08/13/19 05:10 Home Medication List Medication Instructions Recorded Confirmed Type Atorvastatin Ca [Lipitor] 20 mg PO HS 08/12/19 08/12/19 History Carvedilol [Coreg] 25 mg PO BID 08/12/19 08/12/19 History Clopidogrel Bisulfate [Plavix] 75 mg PO DAILY 08/12/19 08/12/19 History Diltiazem [Cardizem -] 360 mg PO DAILY 08/12/19 08/12/19 History Famotidine 20 mg PO DAILY 08/12/19 08/12/19 History Isosorbide Mononitrate [Isosorbide 120 mg PO DAILY 08/12/19 08/12/19 History Mononitrate ER] Losartan Potassium 100 mg PO DAILY 08/12/19 08/12/19 History Minoxidil [Loniten -] 10 mg PO HS 08/12/19 08/12/19 History Nifedipine [Nifedipine ER] 60 mg PO DAILY 08/12/19 08/12/19 History Nitroglycerin 0.4 mg SL ASDIR 08/12/19 08/12/19 History Sevelamer HCl [Renagel] 800 mg PO TID 08/12/19 08/12/19 History Active Medications Generic Name Dose Route Start Last Admin Trade Name Freq PRN Reason Stop Dose Admin Acetaminophen 650 mg 08/12/19 16:00 08/12/19 22:50 Tylenol - PO 650 mg Q6H PRN Administration Fever / Pain 6-10 for headache Atorvastatin Calcium 20 mg 08/12/19 22:00 08/12/19 21:35 Lipitor - PO 20 mg HS KAUSHIK Administration Carvedilol 25 mg 08/13/19 10:00 08/13/19 09:21 Coreg - PO 25 mg BID KAUSHIK Administration Chlorhexidine Gluconate 1 applic 08/12/19 22:00 08/12/19 21:36 Hibiclens For Decolonization - TP 1 applic HS KAUSHIK Administration Clopidogrel Bisulfate 75 mg 08/13/19 10:00 08/13/19 09:19 Plavix - PO 75 mg DAILY KAUSHIK Administration Diltiazem HCl 360 mg 08/12/19 15:45 08/13/19 09:21 Cardizem Cd - PO 360 mg DAILY KAUSHIK Administration Heparin Sodium (Porcine) 5,000 unit 08/12/19 14:00 08/13/19 06:22 Heparin - SQ Not Given TID KAUSHIK Nitroglycerin/Dextrose 25 mg in 250 mls @ 6 mls/hr 08/12/19 05:30 08/13/19 06 :22 Nitroglycerin 25mg/D5w 250ml IVPB Not Given TITR KAUSHIK 10 MCG/MIN Sodium Chloride 250 mls @ 3,000 mls/hr 08/12/19 10:52 Normal Saline - IV 08/13/19 10:52 PRN PRN Hypotension during Dialysis Isosorbide Mononitrate 120 mg 08/12/19 15:45 08/13/19 09:20 Imdur - PO 120 mg DAILY KAUSHIK Administration Losartan Potassium 100 mg 08/12/19 15:45 08/13/19 09:20 Cozaar - PO 100 mg DAILY KAUSHIK Administration Minoxidil 10 mg 08/13/19 22:00 Loniten - PO HS [facility] Mupirocin 1 applic 08/12/19 22:00 08/13/19 09:36 Bactroban Ointment (For Decolonization) - NS 08/17/19 21:59 1 applic BID KAUSHIK Administration Nifedipine 60 mg 08/12/19 15:45 08/12/19 16:06 Procardia Xl - PO 60 mg DAILY KAUSHIK Administration GENERAL: Awake, alert, NAD HEAD: Normal with no signs of trauma. EYES: Pupils equal, round and reactive to light, extraocular movements intact, sclera anicteric, conjunctiva clear. No lid lag. EARS, NOSE, THROAT: Ears normal, nares patent, oropharynx clear without exudates. Moist mucous membranes. NECK: Normal range of motion, supple without lymphadenopathy, JVD, or masses. LUNGS: Improving rales and rhonchi HEART: Regular rate and rhythm, normal S1 and S2 without murmur, rub or gallop. ABDOMEN: Soft, nontender, not distended, normoactive bowel sounds, no guarding, no rebound, no masses. No hepatomegaly or splenomegaly. MUSCULOSKELETAL: Normal range of motion at all joints. No bony deformities or tenderness. No CVA tenderness. UPPER EXTREMITIES: 2+ pulses, warm, well-perfused. No cyanosis. No clubbing. Cap refill <2 seconds. No peripheral edema. LOWER EXTREMITIES: 2+ pulses, warm, well-perfused. No calf tenderness. No peripheral edema. NEUROLOGICAL: Non-focal SKIN: Warm, dry, normal turgor, no rashes or lesions noted. Laboratory Results - last 24 hr 08/12/19 08/12/19 08/12/19 11:10 14:44 15:15 WBC RBC Hgb Hct MCV MCH MCHC RDW Plt Count MPV Absolute Neuts (auto) Neutrophils % Lymphocytes % Monocytes % Eosinophils % Basophils % Nucleated RBC % Sodium Potassium Chloride Carbon Dioxide Anion Gap BUN 9.7 Creatinine 1.7 H Est GFR (CKD-EPI)AfAm 38.13 Est GFR (CKD-EPI)NonAf 32.90 Random Glucose Calcium Phosphorus Magnesium Total Bilirubin AST ALT Alkaline Phosphatase Troponin I 0.04 Total Protein Albumin Hep Bs Antigen Negative Hep C Ab Diagnostic <0.1 08/12/19 08/13/19 08/13/19 17:44 05:55 05:55 WBC 5.2 RBC 3.25 L Hgb 10.4 L Hct 30.2 L MCV 93.0 MCH 32.1 MCHC 34.5 RDW 15.9 H Plt Count 133 L MPV 8.6 Absolute Neuts (auto) 3.5 Neutrophils % 66.1 Lymphocytes % 19.3 Monocytes % 11.0 H Eosinophils % 3.0 Basophils % 0.6 Nucleated RBC % 0 Sodium 137 Potassium 4.4 Chloride 101 Carbon Dioxide 31 Anion Gap 4 L BUN 40.9 H Creatinine 5.3 H Est GFR (CKD-EPI)AfAm 9.64 Est GFR (CKD-EPI)NonAf 8.32 Random Glucose 86 Calcium 8.0 L Phosphorus 5.9 H Magnesium 1.7 L Total Bilirubin 0.8 AST 22 ALT 29 Alkaline Phosphatase 101 Troponin I 0.03 Total Protein 6.7 Albumin 3.4 Hep Bs Antigen Hep C Ab Diagnostic ASSESSMENT/PLAN: Acute Respiratory Failure due to CHF due to Hypertensive Emergency HTN CHF HFpEF ESRD on HD (/) History of Pulmonary TB (S/P [place] 08/01-03/01) Paroxysmal AFib (s/p ablation) PPM CAD with multiple stents Use of home O2 @ 2L NC HD per Renal Imdur NIPPV support as needed ECHO AC Aspiration precautions Daily weights Strict I & O Cardiac Telemetry monitoring Dr Santizo
--- NOTE | 2019-08-13 10:48 | PN ---
Physical Exam: SUBJECTIVE: Patient seen this morning with no complaints. She feels much better after her dialysis yesterday. OBJECTIVE: Vital Signs Period Temp Pulse Resp BP Sys/French Pulse Ox Last 24 Hr 98.1 F-98.4 F 64-95 12-26 111-229/48-113 94-100 GENERAL: The patient is awake, alert, and fully oriented, in no acute distress. HEAD: Normal with no signs of trauma. EYES: PERRL, extraocular movements intact, ENT: moist mucous membranes. NECK: Trachea midline, full range of motion, supple. LUNGS: Breath sounds equal, clear to auscultation bilaterally, no wheezes, no crackles, no accessory muscle use. HEART: Regular rate and rhythm, S1, S2 without murmur, rub or gallop. ABDOMEN: Soft, nontender, nondistended, normoactive bowel sounds, es. EXTREMITIES: 2+ pulses, warm, well-perfused, no edema. SKIN: Warm, dry, normal turgor, no rashes or lesions noted thrill felt over left fistula CBC, BMP 08/13/19 05:55 08/13/19 05:55 Active Medications Acetaminophen (Tylenol -) 650 mg PO Q6H PRN PRN Reason: Fever / Pain 6-10 for headache Last Admin: 08/12/19 22:50 Dose: 650 mg Atorvastatin Calcium (Lipitor -) 20 mg PO HS [facility] Last Admin: 08/12/19 21:35 Dose: 20 mg Carvedilol (Coreg -) 25 mg PO BID [facility] Last Admin: 08/13/19 09:21 Dose: 25 mg Chlorhexidine Gluconate (Hibiclens For Decolonization -) 1 applic TP HS [facility] Last Admin: 08/12/19 21:36 Dose: 1 applic Clopidogrel Bisulfate (Plavix -) 75 mg PO DAILY [facility] Last Admin: 08/13/19 09:19 Dose: 75 mg Diltiazem HCl (Cardizem Cd -) 360 mg PO DAILY [facility] Last Admin: 08/13/19 09:21 Dose: 360 mg Heparin Sodium (Porcine) (Heparin -) 5,000 unit SQ TID [facility] Last Admin: 08/13/19 06:22 Dose: Not Given Nitroglycerin/Dextrose (Nitroglycerin 25mg/D5w 250ml) 25 mg in 250 mls @ 6 mls/ hr IVPB TITR [facility] Last Admin: 08/13/19 06:22 Dose: Not Given Sodium Chloride (Normal Saline -) 250 mls @ 3,000 mls/hr IV PRN PRN PRN Reason: Hypotension during Dialysis Stop: 08/13/19 10:52 Isosorbide Mononitrate (Imdur -) 120 mg PO DAILY [facility] Last Admin: 08/13/19 09:20 Dose: 120 mg Losartan Potassium (Cozaar -) 100 mg PO DAILY [facility] Last Admin: 08/13/19 09:20 Dose: 100 mg Minoxidil (Loniten -) 10 mg PO HS [facility] Mupirocin (Bactroban Ointment (For Decolonization) -) 1 applic NS BID [facility] Stop: 08/17/19 21:59 Last Admin: 08/13/19 09:36 Dose: 1 applic Nifedipine (Procardia Xl -) 60 mg PO DAILY [facility] Last Admin: 08/12/19 16:06 Dose: 60 mg ASSESSMENT/PLAN: 58 y/o female with PMH of HTN, ESRD (t//) CHF CAD s/p stents , PPM presents to the ED with complaints of worsening shortness of breath over the past few days found to be in CHF exacerbation with hypertensive emergency #Neuro - stable; no issues #Cardio - HTN, CHF, CAD - hypertensive emergency resolved, continue home meds carvedilol 25 bid, diltiazem 360 daily, imdur 120 mg daily, losartan 100 mg daily, minoxidil hs, nifedipine 60 mg daily, monitor BP closely - echo ordered - cardio consulted - continue clopidogrel hx of stents and vascular disease #GI - stable; no issues - renal diet; sodium restriction - hepatitis negative #Pulm - uses 2liters of o2 at home -currently saturating well on NC at 2 L -repeat CXR in AM -BIPAP if need -monitor o2 saturations #Renal history of ESRD t// - due for dialysis on wednesday, cr improved with dialysis -sodium restrictions -monitor volume status -avoid nephrotoxic drugs -nephro consulted f/e/n not on fluids monitor electrolytes, repleted magnesium sodium/renal diet dvt ppx: heparin sq Dispo: stable to be transferred to tele Visit type - Emergency Visit Emergency Visit: No - New Patient This patient is new to me today: Yes Date on this admission: 08/13/19 - Critical Care Critical Care patient: Yes Total Critical Care Time (in minutes): 37 Critical Care Statement: The care of this patient involved high complexity decision making to prevent further life threatening deterioration of the patient 's condition and/or to evaluate & treat vital organ system(s) failure or risk of failure. ATTENDING PHYSICIAN STATEMENT I saw and evaluated the patient. I reviewed the resident's note and discussed the case with the resident. I agree with the resident's findings and plan as documented. SUBJECTIVE: OBJECTIVE: ASSESSMENT AND PLAN:
[2019-08-13] MEDS ORDERED: SODIUM CHLORIDE 250 ML IV PRN (10:50)
--- NOTE | 2019-08-13 10:50 | PN ---
Progress Note (short form) - Note Progress Note: Renal follow up for ESRD coverage for Dr. Caputo Seen and examined in the ICU awake and alert feels much better s/p dialysis yesterday with 4L UF no chest pain or sob still has some hypoxia off O2 Vital Signs Temperature 98.2 F 08/13/19 10:00 Pulse Rate 64 08/13/19 09:26 Respiratory Rate 18 08/13/19 09:26 Blood Pressure 126/66 08/13/19 10:00 O2 Sat by Pulse Oximetry (%) 98 08/13/19 10:00 Intake & Output 08/10/19 08/11/19 08/12/19 08/13/19 23:59 23:59 23:59 23:59 Intake Total 564 Output Total 30 Balance 534 Weight 59.647 kg 57.4 kg NAD on NC O2 awake and alert neck supple irregular, + murmur Dec BS, no rales or wheeze soft NT/ND no LE edema Left arm AVF CBC, BMP 08/13/19 05:55 08/13/19 05:55 Current Medications Acetaminophen (Tylenol -) 650 mg PO Q6H PRN PRN Reason: Fever / Pain 6-10 for headache Last Admin: 08/12/19 22:50 Dose: 650 mg Atorvastatin Calcium (Lipitor -) 20 mg PO HS [facility] Last Admin: 08/12/19 21:35 Dose: 20 mg Carvedilol (Coreg -) 25 mg PO BID [facility] Last Admin: 08/13/19 09:21 Dose: 25 mg Chlorhexidine Gluconate (Hibiclens For Decolonization -) 1 applic TP HS [facility] Last Admin: 08/12/19 21:36 Dose: 1 applic Clopidogrel Bisulfate (Plavix -) 75 mg PO DAILY [facility] Last Admin: 08/13/19 09:19 Dose: 75 mg Diltiazem HCl (Cardizem Cd -) 360 mg PO DAILY [facility] Last Admin: 08/13/19 09:21 Dose: 360 mg Heparin Sodium (Porcine) (Heparin -) 5,000 unit SQ TID [facility] Last Admin: 08/13/19 06:22 Dose: Not Given Sodium Chloride (Normal Saline -) 250 mls @ 3,000 mls/hr IV PRN PRN PRN Reason: Hypotension during Dialysis Stop: 08/13/19 10:52 Isosorbide Mononitrate (Imdur -) 120 mg PO DAILY [facility] Last Admin: 08/13/19 09:20 Dose: 120 mg Losartan Potassium (Cozaar -) 100 mg PO DAILY [facility] Last Admin: 08/13/19 09:20 Dose: 100 mg Minoxidil (Loniten -) 10 mg PO [facility] Mupirocin (Bactroban Ointment (For Decolonization) -) 1 applic NS BID [facility] Stop: 08/17/19 21:59 Last Admin: 08/13/19 09:36 Dose: 1 applic Nifedipine (Procardia Xl -) 60 mg PO DAILY [facility] Last Admin: 08/12/19 16:06 Dose: 60 mg 58 year old woman with history of ESRD on HD (TTS), hypertension, CHF, Afib on A /C, PPM who presented from home with shortness of breath and found to have acute HF with hypertensive emergency. 1. Hypertensive emergency 2. Acute HF 3. ESRD on HD 4. Afib Clinically improved s/p HD yesterday will arrange for isolated UF tomorrow and then regular dialysis on Wednesday continue oral antihypertensives after dialysis Sodium restriction Thank you Alec Law DO
[2019-08-13] MEDS: NIFEdipine E.R 60 MG TABLET PO SCH ×2 (10:51→13:51)
--- NOTE | 2019-08-13 10:53 | PN ---
Progress Note, Physician History of Present Illness: Shortness of breath, headache, chest tightness referable to acute on chronic diastolic HF with hypertensive emergency improving post Nitro gtt and 4 L ultrafiltration with relief of symptoms. Off NIPPV on NC. - Current Medication List Current Medications: Active Medications Acetaminophen (Tylenol -) 650 mg PO Q6H PRN PRN Reason: Fever / Pain 6-10 for headache Last Admin: 08/12/19 22:50 Dose: 650 mg Atorvastatin Calcium (Lipitor -) 20 mg PO HS [facility] Last Admin: 08/12/19 21:35 Dose: 20 mg Carvedilol (Coreg -) 25 mg PO BID [facility] Last Admin: 08/13/19 09:21 Dose: 25 mg Chlorhexidine Gluconate (Hibiclens For Decolonization -) 1 applic TP HS [facility] Last Admin: 08/12/19 21:36 Dose: 1 applic Clopidogrel Bisulfate (Plavix -) 75 mg PO DAILY [facility] Last Admin: 08/13/19 09:19 Dose: 75 mg Diltiazem HCl (Cardizem Cd -) 360 mg PO DAILY [facility] Last Admin: 08/13/19 09:21 Dose: 360 mg Heparin Sodium (Porcine) (Heparin -) 5,000 unit SQ TID [facility] Last Admin: 08/13/19 06:22 Dose: Not Given Sodium Chloride (Normal Saline -) 250 mls @ 3,000 mls/hr IV PRN PRN PRN Reason: Hypotension during Dialysis Stop: 08/13/19 10:52 Sodium Chloride (Normal Saline -) 250 mls @ 3,000 mls/hr IV PRN PRN PRN Reason: Hypotension during Dialysis Stop: 08/14/19 10:50 Isosorbide Mononitrate (Imdur -) 120 mg PO DAILY [facility] Last Admin: 08/13/19 09:20 Dose: 120 mg Losartan Potassium (Cozaar -) 100 mg PO DAILY [facility] Last Admin: 08/13/19 09:20 Dose: 100 mg Minoxidil (Loniten -) 10 mg PO [facility] Mupirocin (Bactroban Ointment (For Decolonization) -) 1 applic NS BID [facility] Stop: 08/17/19 21:59 Last Admin: 08/13/19 09:36 Dose: 1 applic Nifedipine (Procardia Xl -) 60 mg PO DAILY [facility] Last Admin: 08/13/19 10:51 Dose: Not Given - Objective Vital Signs: Vital Signs Temperature 98.2 F 08/13/19 10:00 Pulse Rate 64 08/13/19 09:26 Respiratory Rate 18 08/13/19 09:26 Blood Pressure 126/66 08/13/19 10:00 O2 Sat by Pulse Oximetry (%) 98 08/13/19 10:00 Constitutional: Yes: No Distress, Calm Neck: Yes: Supple Cardiovascular: Yes: Regular Rate and Rhythm Respiratory: Yes: Regular, Diminished, On Nasal O2 Gastrointestinal: Yes: Normal Bowel Sounds, Soft Edema: No Labs: CBC, BMP 08/13/19 05:55 08/13/19 05:55 INR, PTT INR 1.07 (0.83-1.09) 08/12/19 05:20 - ....Imaging Chest X-ray: Report Reviewed (Improved aeration) EKG: Report Reviewed (Tele: NSR) Problem List - Problems (1) Hyperlipidemia Code(s): E78.5 - HYPERLIPIDEMIA, UNSPECIFIED Qualifiers: Hyperlipidemia type: pure hypercholesterolemia Qualified Code(s): E78.00 - Pure hypercholesterolemia, unspecified; E78.0 - Pure hypercholesterolemia (2) Coronary artery disease Code(s): I25.10 - ATHSCL HEART DISEASE OF [place] CORONARY ARTERY W/O ANG PCTRS Qualifiers: Coronary Disease-Associated Artery/Lesion type: [place] artery [place] vs. transplanted heart: [place] heart Associated angina: with stable angina Qualified Code(s): I25.118 - Atherosclerotic heart disease of [place] coronary artery with other forms of angina pectoris (3) Stented coronary artery Code(s): Z95.5 - PRESENCE OF CORONARY ANGIOPLASTY IMPLANT AND GRAFT (4) End stage renal disease on dialysis Code(s): N18.6 - END STAGE RENAL DISEASE; Z99.2 - DEPENDENCE ON RENAL DIALYSIS (5) CHF exacerbation Code(s): I50.9 - HEART FAILURE, UNSPECIFIED Qualifiers: Heart failure type: diastolic Qualified Code(s): I50.33 - Acute on chronic diastolic (congestive) heart failure (6) Hypertensive emergency Code(s): I16.1 - HYPERTENSIVE EMERGENCY Assessment/Plan 1. Acute on chronic diastolic heart failure resolving 2. HTN emergency resolved 3. ESRD on HD via LUE AVF (/) 4. CAD s/p stents 5. PAF->SR (s/p ablation) not on a/c 6. s/p PPM 7. Hyperlipidemia 8. History of Pulmonary TB (S/P [place] 08/01-03/01) P:1. Volume removal via UF per renal 2. Weaned NTG gtt, resuming home regimen including Lipitor 20 qd, carvedilol 25 bid, Plavix 75 qd, Cardizem CD 360 qd, Imdur 120 qd, losartan 100 qd, minoxidil 10 qd, Procardia XL 60 qd step-pacheco fashion after dialysis 3. F/u echo results 4. FIO2 as needed 5. Decision on long-term a/c deferred to private machine [facility]
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
[2019-08-13] MEDS ORDERED: MINOXIDIL 10 MG TABLET PO SCH (22:00)
[2019-08-13] MEDS: CHLORHEXIDINE GLUCONATE 4% CLEANSER FOR DECOLONIZATION TP SCH (22:18)
[2019-08-13] MEDS: ATORVASTATIN CA 20 MG TABLET (FP) PO SCH (22:18)
[2019-08-14 06:00] LABS: HEMATOCRIT 29.4 % (32.4-45.2); HEMOGLOBIN 10.1 GM/dL (10.7-15.3); MCH 32.1 pg (25.7-33.7); MCHC 34.2 g/dl (32.0-36.0); MEAN CELL VOLUME 93.9 fl (80-96); MEAN PLT VOLUME 8.4 fl (7.5-11.1); PLATELET COUNT 135 K/MM3 (134-434); RBC 3.14 M/mm3 (3.60-5.2); RDW 15.5 % (11.6-15.6); WHITE BLOOD COUNT 5.3 K/mm3 (4.0-10.0)
[2019-08-14 06:33] LABS: ALBUMIN 3.2 g/dl (3.4-5.0); BILIRUBIN,TOTAL 0.3 mg/dL (0.2-1); BLOOD UREA NITROGEN 70.6 mg/dL (7-18); CALCIUM 7.6 mg/dL (8.5-10.1); PHOSPHOROUS 7.5 mg/dL (2.5-4.9); POTASSIUM 4.7 mmol/L (3.5-5.1); TOT PROT 6.1 g/dl (6.4-8.2)
[2019-08-14 06:34] LABS: CREATININE 7.6 mg/dL (0.55-1.3)
[2019-08-14] MEDS ORDERED: PT OWN MED DRAWER 7, Y5N ONE (09:31)
[2019-08-14] MEDS: CARVEDILOL 25 MG TABLET (FP) PO SCH (09:33)
[2019-08-14] MEDS: LOSARTAN POTASSIUM 50 MG TABLET (FP) PO SCH (09:34)
[2019-08-14] MEDS: CLOPIDOGREL BISULFATE 75 MG TABLET (FP) PO SCH (09:34)
[2019-08-14] MEDS: NIFEdipine E.R 60 MG TABLET PO SCH (09:35)
[2019-08-14] MEDS: ISOSORBIDE MONONITRATE 60 MG TAB.SR.24H (FP) PO SCH (09:35)
[2019-08-14] MEDS: HEPARIN NA (PORCINE) 5,000 UNITS/ML 1ML VIAL SQ SCH (09:39)
[2019-08-14] MEDS: MUPIROCIN 2% TOPICAL OINTMENT FOR DECOLONIZATION NS SCH (09:42)
--- NOTE | 2019-08-14 10:51 | PN ---
Progress Note, Physician History of Present Illness: Shortness of breath, headache, chest tightness referable to acute on chronic diastolic HF with hypertensive emergency resolved with ultrafiltration and BP control. Off NC. - Current Medication List Current Medications: Active Medications Acetaminophen (Tylenol -) 650 mg PO Q6H PRN PRN Reason: Fever / Pain 6-10 for headache Last Admin: 08/12/19 22:50 Dose: 650 mg Atorvastatin Calcium (Lipitor -) 20 mg PO HS [facility] Last Admin: 08/13/19 22:18 Dose: 20 mg Carvedilol (Coreg -) 25 mg PO BID [facility] Last Admin: 08/14/19 09:33 Dose: 25 mg Chlorhexidine Gluconate (Hibiclens For Decolonization -) 1 applic TP HS [facility] Last Admin: 08/13/19 22:18 Dose: 1 applic Clopidogrel Bisulfate (Plavix -) 75 mg PO DAILY [facility] Last Admin: 08/14/19 09:34 Dose: 75 mg Diltiazem HCl (Cardizem Cd -) 360 mg PO DAILY [facility] Last Admin: 08/14/19 09:34 Dose: 360 mg Heparin Sodium (Porcine) (Heparin -) 5,000 unit SQ BID [facility] Last Admin: 08/14/19 09:39 Dose: Not Given Sodium Chloride (Normal Saline -) 250 mls @ 3,000 mls/hr IV PRN PRN PRN Reason: Hypotension during Dialysis Stop: 08/13/19 10:52 Sodium Chloride (Normal Saline -) 250 mls @ 3,000 mls/hr IV PRN PRN PRN Reason: Hypotension during Dialysis Stop: 08/14/19 10:50 Isosorbide Mononitrate (Imdur -) 120 mg PO DAILY [facility] Last Admin: 08/14/19 09:35 Dose: 120 mg Losartan Potassium (Cozaar -) 100 mg PO DAILY [facility] Last Admin: 08/14/19 09:34 Dose: 100 mg Minoxidil (Loniten -) 10 mg PO [facility] Last Admin: 08/13/19 22:30 Dose: Not Given Mupirocin (Bactroban Ointment (For Decolonization) -) 1 applic NS BID [facility] Stop: 08/17/19 21:59 Last Admin: 08/14/19 09:42 Dose: 1 applic Nifedipine (Procardia Xl -) 60 mg PO DAILY [facility] Last Admin: 08/14/19 09:35 Dose: 60 mg - Objective Vital Signs: Vital Signs Temperature 98.8 F 08/14/19 07:10 Pulse Rate 64 08/14/19 09:20 Respiratory Rate 18 08/14/19 09:20 Blood Pressure 143/91 08/14/19 09:20 O2 Sat by Pulse Oximetry (%) 99 08/14/19 09:00 Constitutional: Yes: No Distress, Calm, Thin Neck: Yes: Supple Cardiovascular: Yes: Regular Rate and Rhythm Respiratory: Yes: Regular, CTA Bilaterally Gastrointestinal: Yes: Normal Bowel Sounds, Soft Extremities: Yes: Other (LUE AVF) Edema: No Labs: CBC, BMP 08/14/19 05:35 08/14/19 05:35 INR, PTT INR 1.07 (0.83-1.09) 08/12/19 05:20 - ....Imaging EKG: Report Reviewed (Tele: Occ AV pacing) Problem List - Problems (1) Hyperlipidemia Code(s): E78.5 - HYPERLIPIDEMIA, UNSPECIFIED Qualifiers: Hyperlipidemia type: pure hypercholesterolemia Qualified Code(s): E78.00 - Pure hypercholesterolemia, unspecified; E78.0 - Pure hypercholesterolemia (2) Coronary artery disease Code(s): I25.10 - ATHSCL HEART DISEASE OF [place] CORONARY ARTERY W/O ANG PCTRS Qualifiers: Coronary Disease-Associated Artery/Lesion type: [place] artery [place] vs. transplanted heart: [place] heart Associated angina: with stable angina Qualified Code(s): I25.118 - Atherosclerotic heart disease of [place] coronary artery with other forms of angina pectoris (3) Stented coronary artery Code(s): Z95.5 - PRESENCE OF CORONARY ANGIOPLASTY IMPLANT AND GRAFT (4) End stage renal disease on dialysis Code(s): N18.6 - END STAGE RENAL DISEASE; Z99.2 - DEPENDENCE ON RENAL DIALYSIS (5) CHF exacerbation Code(s): I50.9 - HEART FAILURE, UNSPECIFIED Qualifiers: Heart failure type: diastolic Qualified Code(s): I50.33 - Acute on chronic diastolic (congestive) heart failure (6) Hypertensive emergency Code(s): I16.1 - HYPERTENSIVE EMERGENCY Assessment/Plan 1. Acute on chronic diastolic heart failure resolving 2. HTN emergency resolved 3. ESRD on HD via LUE AVF (t/th/s) 4. CAD s/p stents 5. PAF->SR (s/p ablation) not on a/c 6. s/p PPM 7. Hyperlipidemia 8. History of Pulmonary TB (S/P [place] 08/01-03/01) P:1. Volume removal via UF per renal 2. Continue home regimen including Lipitor 20 qd, carvedilol 25 bid, Plavix 75 qd, Cardizem CD 360 qd, Imdur 120 qd, losartan 100 qd, minoxidil 10 qd, Procardia XL 60 qd step-pacheco fashion after dialysis 3. F/u echo results 4. FIO2 as needed 5. Decision on long-term a/c deferred to private foreman/project manager 6. D/c planning
--- NOTE | 2019-08-14 11:45 | PN ---
Progress Note, Physician History of Present Illness: Pt seen and examined at bedside. She tolerated HD today. She has HD set up as outpt. She denies shortness of breath. - Current Medication List Current Medications: Active Medications Acetaminophen (Tylenol -) 650 mg PO Q6H PRN PRN Reason: Fever / Pain 6-10 for headache Last Admin: 08/12/19 22:50 Dose: 650 mg Atorvastatin Calcium (Lipitor -) 20 mg PO HS [facility] Last Admin: 08/13/19 22:18 Dose: 20 mg Carvedilol (Coreg -) 25 mg PO BID [facility] Last Admin: 08/14/19 09:33 Dose: 25 mg Chlorhexidine Gluconate (Hibiclens For Decolonization -) 1 applic TP HS [facility] Last Admin: 08/13/19 22:18 Dose: 1 applic Clopidogrel Bisulfate (Plavix -) 75 mg PO DAILY [facility] Last Admin: 08/14/19 09:34 Dose: 75 mg Diltiazem HCl (Cardizem Cd -) 360 mg PO DAILY [facility] Last Admin: 08/14/19 09:34 Dose: 360 mg Heparin Sodium (Porcine) (Heparin -) 5,000 unit SQ BID [facility] Last Admin: 08/14/19 09:39 Dose: Not Given Sodium Chloride (Normal Saline -) 250 mls @ 3,000 mls/hr IV PRN PRN PRN Reason: Hypotension during Dialysis Stop: 08/13/19 10:52 Sodium Chloride (Normal Saline -) 250 mls @ 3,000 mls/hr IV PRN PRN PRN Reason: Hypotension during Dialysis Stop: 08/14/19 10:50 Isosorbide Mononitrate (Imdur -) 120 mg PO DAILY [facility] Last Admin: 08/14/19 09:35 Dose: 120 mg Losartan Potassium (Cozaar -) 100 mg PO DAILY [facility] Last Admin: 08/14/19 09:34 Dose: 100 mg Minoxidil (Loniten -) 10 mg PO HS [facility] Last Admin: 08/13/19 22:30 Dose: Not Given Mupirocin (Bactroban Ointment (For Decolonization) -) 1 applic NS BID [facility] Stop: 08/17/19 21:59 Last Admin: 08/14/19 09:42 Dose: 1 applic Nifedipine (Procardia Xl -) 60 mg PO DAILY [facility] Last Admin: 08/14/19 09:35 Dose: 60 mg - Objective Vital Signs: Vital Signs Temperature 98.8 F 08/14/19 07:10 Pulse Rate 64 08/14/19 09:20 Respiratory Rate 18 08/14/19 09:20 Blood Pressure 143/91 08/14/19 09:20 O2 Sat by Pulse Oximetry (%) 99 08/14/19 09:00 Constitutional: Yes: Calm Eyes: Yes: Conjunctiva Clear HENT: Yes: Atraumatic Neck: Yes: Supple Cardiovascular: Yes: S1, S2 Respiratory: Yes: CTA Bilaterally Gastrointestinal: Yes: Normal Bowel Sounds, Soft Genitourinary: Yes: WNL Extremities: Yes: WNL Edema: No Neurological: Yes: Oriented Psychiatric: Yes: Oriented Labs: CBC, BMP 08/14/19 05:35 08/14/19 05:35 INR, PTT INR 1.07 (0.83-1.09) 08/12/19 05:20 Assessment/Plan Current Medications Generic Name Dose Route Start Last Admin Trade Name Freq PRN Reason Stop Dose Admin Acetaminophen 650 mg 08/12/19 16:00 08/12/19 22:50 Tylenol - PO 650 mg Q6H PRN Administration Fever / Pain 6-10 for headache Atorvastatin Calcium 20 mg 08/12/19 22:00 08/13/19 22:18 Lipitor - PO 20 mg HS [facility] Administration Carvedilol 25 mg 08/13/19 10:00 08/14/19 09:33 Coreg - PO 25 mg BID [facility] Administration Chlorhexidine Gluconate 1 applic 08/12/19 22:00 08/13/19 22:18 Hibiclens For Decolonization - TP 1 applic HS [facility] Administration Clopidogrel Bisulfate 75 mg 08/13/19 10:00 08/14/19 09:34 Plavix - PO 75 mg DAILY [facility] Administration Diltiazem HCl 360 mg 08/12/19 15:45 08/14/19 09:34 Cardizem Cd - PO 360 mg DAILY [facility] Administration Heparin Sodium (Porcine) 5,000 unit 08/13/19 22:00 08/14/19 09:39 Heparin - SQ Not Given BID [facility] Sodium Chloride 250 mls @ 3,000 mls/hr 08/12/19 10:52 Normal Saline - IV 08/13/19 10:52 PRN PRN Hypotension during Dialysis Sodium Chloride 250 mls @ 3,000 mls/hr 08/13/19 10:50 Normal Saline - IV 08/14/19 10:50 PRN PRN Hypotension during Dialysis Isosorbide Mononitrate 120 mg 08/12/19 15:45 08/14/19 09:35 Imdur - PO 120 mg DAILY [facility] Administration Losartan Potassium 100 mg 08/12/19 15:45 08/14/19 09:34 Cozaar - PO 100 mg DAILY [facility] Administration Minoxidil 10 mg 08/13/19 22:00 08/13/19 22:30 Loniten - PO Not Given HS [facility] Mupirocin 1 applic 08/12/19 22:00 08/14/19 09:42 Bactroban Ointment (For Decolonization) - NS 08/17/19 21:59 1 applic BID [facility] Administration Nifedipine 60 mg 08/12/19 15:45 08/14/19 09:35 Procardia Xl - PO 60 mg DAILY [facility] Administration Impression 1. ESRD 2. HTN 3. a-fib 4. chf Plan - volume status is improved - bp stabilizing, cont to monitor values after HD - will need to adjust HD dry weight, this was discussed with pt and her daughter - check weight today after HD/UF
--- NOTE | 2019-08-14 12:06 | PN ---
Physical Exam: SUBJECTIVE: Patient seen and examined With complaints of SOB yesterday and required 2LNC briefly. This morning not complaining of any chest pain, SOB, RICE, abd pain. BP stable since HD 2 days ago. Currently receiving ultrafiltrate at the bedside. OBJECTIVE: Vital Signs Period Temp Pulse Resp BP Sys/French Pulse Ox Last 24 Hr 98.1 F-98.8 F 60-73 12-22 108-145/55-96 98-99 GENERAL: The patient is awake, alert, and fully oriented, in no acute distress. HEAD: Normal with no signs of trauma. EYES: PERRL, extraocular movements intact, ENT: moist mucous membranes. NECK: Trachea midline, full range of motion, supple. LUNGS: Breath sounds equal, clear to auscultation bilaterally, no wheezes, no crackles, no accessory muscle use. HEART: Regular rate and rhythm, S1, S2 without murmur, rub or gallop. ABDOMEN: Soft, nontender, nondistended, normoactive bowel sounds, es. EXTREMITIES: 2+ pulses, warm, well-perfused, no edema. SKIN: Warm, dry, normal turgor, no rashes or lesions noted thrill felt over left fistula Laboratory Results - last 24 hr CBC, BMP 08/14/19 05:35 08/14/19 05:35 Active Medications Generic Name Dose Route Start Last Admin Trade Name Freq PRN Reason Stop Dose Admin Acetaminophen 650 mg 08/12/19 16:00 08/12/19 22:50 Tylenol - PO 650 mg Q6H PRN Administration Fever / Pain 6-10 for headache Atorvastatin Calcium 20 mg 08/12/19 22:00 08/13/19 22:18 Lipitor - PO 20 mg HS [facility] Administration Carvedilol 25 mg 08/13/19 10:00 08/14/19 09:33 Coreg - PO 25 mg BID [facility] Administration Chlorhexidine Gluconate 1 applic 08/12/19 22:00 08/13/19 22:18 Hibiclens For Decolonization - TP 1 applic HS [facility] Administration Clopidogrel Bisulfate 75 mg 08/13/19 10:00 08/14/19 09:34 Plavix - PO 75 mg DAILY [facility] Administration Diltiazem HCl 360 mg 08/12/19 15:45 08/14/19 09:34 Cardizem Cd - PO 360 mg DAILY [facility] Administration Heparin Sodium (Porcine) 5,000 unit 08/13/19 22:00 08/14/19 09:39 Heparin - SQ Not Given BID [facility] Sodium Chloride 250 mls @ 3,000 mls/hr 08/12/19 10:52 Normal Saline - IV 08/13/19 10:52 PRN PRN Hypotension during Dialysis Sodium Chloride 250 mls @ 3,000 mls/hr 08/13/19 10:50 Normal Saline - IV 08/14/19 10:50 PRN PRN Hypotension during Dialysis Isosorbide Mononitrate 120 mg 08/12/19 15:45 08/14/19 09:35 Imdur - PO 120 mg DAILY [facility] Administration Losartan Potassium 100 mg 08/12/19 15:45 08/14/19 09:34 Cozaar - PO 100 mg DAILY [facility] Administration Minoxidil 10 mg 08/13/19 22:00 08/13/19 22:30 Loniten - PO Not Given HS [facility] Mupirocin 1 applic 08/12/19 22:00 08/14/19 09:42 Bactroban Ointment (For Decolonization) - NS 08/17/19 21:59 1 applic BID [facility] Administration Nifedipine 60 mg 08/12/19 15:45 08/14/19 09:35 Procardia Xl - PO 60 mg DAILY [facility] Administration ASSESSMENT/PLAN: 58 y/o female with PMH of HTN, ESRD (t//) CHF CAD s/p stents , PPM presents to the ED with complaints of worsening shortness of breath over the past few days found to be in CHF exacerbation with hypertensive emergency #Neuro - stable; no issues #Cardio - HTN, CHF, CAD - hypertensive emergency resolved and currently off nitro ggt, continue home meds carvedilol 25 bid, diltiazem 360 daily, imdur 120 mg daily, losartan 100 mg daily, minoxidil hs, nifedipine 60 mg daily, monitor BP closely - cardio consulted - continue clopidogrel hx of stents and vascular disease - will need f/u echo otpt #GI - stable; no issues - renal diet; sodium restriction - hepatitis negative #Pulm - uses 2liters of o2 at home -currently saturating well on RA; NC prn -BIPAP if need -monitor o2 saturations #Renal -history of ESRD t//s - due for dialysis tomorrow cr improved with dialysis -sodium restrictions -monitor volume status -avoid nephrotoxic drugs -nephro consulted f/e/n not on fluids monitor electrolytes, repleted magnesium sodium/renal diet dvt ppx: heparin sq Dispo: Thank you for this consultative opportunity. DC home with otpt HD tomorrow and f/u echo with cardio; primary team to perform appropriate DC and followup instructions Visit type - Emergency Visit Emergency Visit: No - New Patient This patient is new to me today: No - Critical Care Critical Care patient: Yes Total Critical Care Time (in minutes): 35 Critical Care Statement: The care of this patient involved high complexity decision making to prevent further life threatening deterioration of the patient's condition and/or to evaluate & treat vital organ system(s) failure or risk of failure. ATTENDING PHYSICIAN STATEMENT I saw and evaluated the patient. I reviewed the resident's note and discussed the case with the resident. I agree with the resident's findings and plan as documented. SUBJECTIVE: OBJECTIVE: ASSESSMENT AND PLAN:
[2019-08-14 12:54] VITALS: TEMP 97.8
--- NOTE | 2019-08-14 13:15 | PN ---
Teaching Attending Note Name of Resident: Jaquelin Staton ATTENDING PHYSICIAN STATEMENT I saw and evaluated the patient. I reviewed the resident's note and discussed the case with the resident. I agree with the resident's findings and plan as documented. SUBJECTIVE: Pt seen and examined in the ICU. s/p ultrafiltration this AM. States breathing is improved. Denies chest pain. OBJECTIVE: Vital Signs Period Temp Pulse Resp BP Sys/French Pulse Ox Last 24 Hr 97.8 F-98.8 F 60-73 12-22 108-145/55-96 98-99 Intake & Output 08/11/19 08/12/19 08/13/19 08/14/19 23:59 23:59 23:59 23:59 Intake Total 564 700 800 Output Total 30 2500 Balance 534 700 -1700 Weight 59.647 kg 57.4 kg 59.2 kg Gen: NAD at rest Heart: RRR Lung: decreased breath sounds at the bases Abd: soft, nontender Ext: no edema CBC, BMP 08/14/19 05:35 08/14/19 05:35 Active Medications Acetaminophen (Tylenol -) 650 mg PO Q6H PRN PRN Reason: Fever / Pain 6-10 for headache Last Admin: 08/12/19 22:50 Dose: 650 mg Atorvastatin Calcium (Lipitor -) 20 mg PO HS [facility] Last Admin: 08/13/19 22:18 Dose: 20 mg Carvedilol (Coreg -) 25 mg PO BID [facility] Last Admin: 08/14/19 09:33 Dose: 25 mg Chlorhexidine Gluconate (Hibiclens For Decolonization -) 1 applic TP HS [facility] Last Admin: 08/13/19 22:18 Dose: 1 applic Clopidogrel Bisulfate (Plavix -) 75 mg PO DAILY [facility] Last Admin: 08/14/19 09:34 Dose: 75 mg Diltiazem HCl (Cardizem Cd -) 360 mg PO DAILY [facility] Last Admin: 08/14/19 09:34 Dose: 360 mg Heparin Sodium (Porcine) (Heparin -) 5,000 unit SQ BID [facility] Last Admin: 08/14/19 09:39 Dose: Not Given Sodium Chloride (Normal Saline -) 250 mls @ 3,000 mls/hr IV PRN PRN PRN Reason: Hypotension during Dialysis Stop: 08/13/19 10:52 Sodium Chloride (Normal Saline -) 250 mls @ 3,000 mls/hr IV PRN PRN PRN Reason: Hypotension during Dialysis Stop: 08/14/19 10:50 Isosorbide Mononitrate (Imdur -) 120 mg PO DAILY [facility] Last Admin: 08/14/19 09:35 Dose: 120 mg Losartan Potassium (Cozaar -) 100 mg PO DAILY [facility] Last Admin: 08/14/19 09:34 Dose: 100 mg Minoxidil (Loniten -) 10 mg PO HS [facility] Last Admin: 08/13/19 22:30 Dose: Not Given Mupirocin (Bactroban Ointment (For Decolonization) -) 1 applic NS BID [facility] Stop: 08/17/19 21:59 Last Admin: 08/14/19 09:42 Dose: 1 applic Nifedipine (Procardia Xl -) 60 mg PO DAILY [facility] Last Admin: 08/14/19 09:35 Dose: 60 mg ASSESSMENT AND PLAN: Acute on Chronic Diastolic Heart Failure improving Hypertensive Urgency ESRD on HD CAD Paroxysmal Atrial Fibrillation s/p PPM Hyperlipidemia Anemia - HD/UF per renal - daily weights - monitor lytes - O2 to keep SpO2 >90% - BP control - DVT prophylaxis - can monitor on floor
[2019-08-14 15:11] VITALS: BMI 26.2
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
--- NOTE | 2019-08-14 16:11 | ECHO ---
Name: IAN SALAZAR Exam:Adult Echocardiogram Study Date: 08/14/2019 02:34 PM Age: 58 yrs Reason For Study: BELL, r/o WALL MOTION ABN Height: 59 in Weight: 131 lb BSA: 1.5 m2 MMode/2D Measurements & Calculations IVSd: 2.1 cm Ao root diam: 2.9 cm LVIDd: 3.9 cm LA dimension: 4.2 cm LVIDs: 2.5 cm ACS: 1.7 cm LVPWd: 1.9 cm IVSs: 2.9 cm EDV(Teich): 65.3 ml LVOT diam: 1.7 cm ESV(Teich): 22.5 ml LAV (MOD-bp): 74.0 ml TAPSE: 2.0 cm RV S Andrew: 11.2 cm/sec Doppler Measurements & Calculations MV E max andrew: 103.1 cm/sec Ao V2 max: 145.2 cm/sec MV A max andrew: 73.2 cm/sec Ao max P.4 mmHg MV E/A: 1.4 Ao V2 mean: 92.2 cm/sec MV dec time: 0.20 sec Ao mean P.9 mmHg Ao V2 VTI: 31.5 cm URVASHI(I,D): 1.7 cm2 URVASHI(V,D): 1.9 cm2 LV V1 max P.0 mmHg SV(LVOT): 52.0 ml LV V1 mean P.8 mmHg LV V1 max: 122.9 cm/sec LV V1 mean: 78.5 cm/sec LV V1 VTI: 23.8 cm TR max andrew: 238.9 cm/sec PA V2 max: 70.6 cm/sec TR max P.0 mmHg PA max P.0 mmHg PA acc slope: 508.7 cm/sec2 PA acc time: 0.12 sec PI end-d andrew: 109.9 cm/sec Med Peak E' Andrew: 4.2 cm/sec Med E/e': 24.6 Lat Peak E' Andrew: 6.8 cm/sec Lat E/e': 15.1 PA pr(Accel): 23.5 mmHg Pulm Sys Andrew: 57.2 cm/sec Pulm French Andrew: 68.8 cm/sec Pulm S/D: 0.83 Procedure Study Quality: Fair. Left Ventricle The left ventricle is normal in size. There is severe concentric left ventricular hypertrophy. The le ft ventricular ejection fraction is normal. Ejection Fraction = 60-65%. Diastolic dysfunction, Grade II (pseudonormalization pattern). Right Ventricle The right ventricle is normal size. The right ventricular systolic function is normal. Atria The left atrium is severely dilated. The right atrium is moderately dilated. Mitral Valve The mitral valve leaflets appear normal. There is no evidence of stenosis, fluttering, or prolapse. T here is trace mitral regurgitation. Tricuspid Valve The tricuspid valve is normal. There is moderate tricuspid regurgitation. Right ventricular systolic pressure is elevated at 30-40mmHg. Aortic Valve There is mild to moderate aortic sclerosis.;. There is discrete nodular thickening of the left mott ry cusp. Pulmonic Valve The pulmonic valve is not well visualized. Pericardium/Pleura Small pericardial effusion (<1cm). Interpretation Summary LV: Normal size, severe LVH, normal systolic function,EF 60-65%, grade II diastolic dysfunction RV: Normal LA: severely dilated RA: Moderately dialted Moderate TR with normal RVSP Small pericardial effussion. Keshia Singer 08/14/2019 04:11 PM
--- NOTE | 2019-08-14 16:42 | DS ---
Physical Exam: SUBJECTIVE: Patient seen and examined. No acute events noted. Pt receiving UF. OBJECTIVE: Vital Signs Period Temp Pulse Resp BP Sys/French Pulse Ox Last 24 Hr 97.8 F-98.8 F 60-73 12-22 108-143/55-91 98-99 PHYSICAL EXAM GENERAL: The patient is awake, alert, and fully oriented, in no acute distress. LUNGS: Breath sounds equal, clear to auscultation bilaterally, no wheezes, no crackles, no accessory muscle use. HEART: Regular rate and rhythm, S1, S2 without murmur, rub or gallop. ABDOMEN: Soft, nontender, nondistended, normoactive bowel sounds. EXTREMITIES: 2+ pulses, warm, well-perfused, no edema. LABS Laboratory Results - last 24 hr 08/14/19 08/14/19 05:35 05:35 WBC 5.3 RBC 3.14 L Hgb 10.1 L Hct 29.4 L MCV 93.9 MCH 32.1 MCHC 34.2 RDW 15.5 Plt Count 135 MPV 8.4 Sodium 138 Potassium 4.7 Chloride 98 Carbon Dioxide 27 Anion Gap 14 BUN 70.6 H Creatinine 7.6 H* Est GFR (CKD-EPI)AfAm 6.24 Est GFR (CKD-EPI)NonAf 5.38 Random Glucose 93 Calcium 7.6 L Phosphorus 7.5 H Magnesium 2.0 Total Bilirubin 0.3 AST 23 ALT 25 Alkaline Phosphatase 94 Total Protein 6.1 L Albumin 3.2 L HOSPITAL COURSE: Date of Admission:08/12/19 Images: CXR - congestive changes improved on repeat CXR This is a 58 year old female with history of HTN, ESRD (/), Paroxysmal AFib (s/p ablation), Chronic respiratory Failure secondary to Chronic Diastolic CHF (on 2L O2), CAD s/p stents, s/p PPM, History of Pulmonary TB (S/P [place] 08/01- 03/01), admitted for acute on chronic Respiratory Failure 2/2 to acute on chronic diastolic CHF/Fluid Overload secondary to ESRD. Pt gven nephro follow up and HD tm in [facility]. Echo showing RVSP 30-40mmhg, EF 60-65%, diastolic grade II dysfunction, LA/RA severely dilated, small pericardial effusion. Hypertensive urgency continue home meds as prescribed. Date of Discharge: 08/14/19 Minutes to complete discharge: 35 Discharge Summary Problems reviewed: Yes Reason For Visit: HYPERTENSIVE EMERGENCY,HYPERTENSIVE CRISI Current Active Problems CHF exacerbation (Acute) Coronary artery disease (Acute) End stage renal disease on dialysis (Acute) Hyperlipidemia (Acute) Hypertensive emergency (Acute) Stented coronary artery (Acute) Condition: Stable - Instructions Diet, Activity, Other Instructions: You were admitted for having fluid overload due to heart failure and your poor kidney function. You were dialyzed here and given medications to help your heart function. You now have a better volume status and are stable enough for discharge. Follow ups Please follow up with nephrology for regularly scheduled dialysis tomorrow at the center in [place]. Please follow up with cardiology after discharge for your heart failure. You should continue your home medications as prescribed. You should follow up with your primary care doctor in 1 week. You should return to the ER if you have any worsening of your current symptoms. Referrals: Dr. Bakari PORTILLO [Other] - 1 Week Deven Caputo MD [Staff Physician] - 1 Week Juan Jiang MD [Staff Physician] - 1 Week Disposition: HOME - Home Medications Comprehensive Discharge Medication List: Ambulatory Orders Atorvastatin Ca [Lipitor] 20 mg PO HS 08/12/19 Carvedilol [Coreg] 25 mg PO BID 08/12/19 Clopidogrel Bisulfate [Plavix] 75 mg PO DAILY 08/12/19 Diltiazem [Cardizem -] 360 mg PO DAILY 08/12/19 Famotidine 20 mg PO DAILY 08/12/19 Isosorbide Mononitrate [Isosorbide Mononitrate ER] 120 mg PO DAILY 08/12/19 Losartan Potassium 100 mg PO DAILY 08/12/19 Minoxidil [Loniten -] 10 mg PO HS 08/12/19 Nifedipine [Nifedipine ER] 60 mg PO DAILY 08/12/19 Nitroglycerin 0.4 mg SL ASDIR 08/12/19 Sevelamer HCl [Renagel] 800 mg PO TID 08/12/19 This patient is new to me today: Yes Date on this admission: 08/14/19 Emergency Visit: Yes ED Registration Date: 08/12/19 Care time: The patient presented to the Emergency Department on the above date and was hospitalized for further evaluation of their emergent condition. Critical Care patient: Yes Total Critical Care Time (in minutes): 35 Critical Care Statement: The care of this patient involved high complexity decision making to prevent further life threatening deterioration of the patient 's condition and/or to evaluate & treat vital organ system(s) failure or risk of failure. - Discharge Referral Referred to [facility] No ATTENDING PHYSICIAN STATEMENT I saw and evaluated the patient. I reviewed the resident's note and discussed the case with the resident. I agree with the resident's findings and plan as documented. SUBJECTIVE: OBJECTIVE: ASSESSMENT AND PLAN:
[2019-08-14 18:22] VITALS: BP 115/65; PULSE 73
== END 2019-08-14 17:15 | disposition home or self-care (01) | DRG 194 ==
LOC: JER 04:49 → JERBED 07:49 → JICU 09:52
PROC: 5A09357 Assistance with Respiratory Ventilation, Less than 24 Consecutive Hours, Continuous Positive Airway Pressure (ICD-10-PCS; principal; 2019-08-12)
DX: I13.2 Hypertensive heart and chronic kidney disease with heart failure and with stage 5 chronic kidney disease, or end stage renal disease (principal); I48.0 Paroxysmal atrial fibrillation; I16.1 Hypertensive emergency; I16.9 Hypertensive crisis, unspecified; I50.33 Acute on chronic diastolic (congestive) heart failure; N18.6 End stage renal disease; J96.21 Acute and chronic respiratory failure with hypoxia; I25.10 Atherosclerotic heart disease of native coronary artery without angina pectoris; E78.5 Hyperlipidemia, unspecified; Z99.2 Dependence on renal dialysis; Z79.01 Long term (current) use of anticoagulants; Z86.11 Personal history of tuberculosis; Z95.5 Presence of coronary angioplasty implant and graft
CPT/HCPCS: 36415; 71045-TC-FY; 80053; 82550; 82565; 82803; 83735; 83880; 84100; 84484; 84520; 85025; 85027; 85610; 86803; 87340; 93005; 93010; 93306-TC; 94660; 99285-25; J1644